=== PATIENT | male | born 1935 | race Caucasian/White ===

== ENCOUNTER 2017-08-04 21:15 | Emergency (ER) | payer MEDICARE ==
[2017-08-04 22:01] VITALS: BP 130/60; PULSE 74; RESP 18; TEMP 101.6; O2SAT 99
[2017-08-04] MEDS ORDERED: SODIUM CHLOR 0.9% 1000 ML INJ 1,000 ML IV SCH (22:48)
[2017-08-04] MEDS ORDERED: ONDANSETRON HCL 4 MG/2 ML VIAL IVP ONE (23:00)
[2017-08-04] MEDS ORDERED: RESP: ALBUTEROL 2.5 MG/IPRATROPIUM 0.5 MG NEB (SCH) NEB ONE (23:00)
[2017-08-04] MEDS ORDERED: SODIUM CHLORIDE 0.9% FLUSH 10 ML FLUSH IVF PRN (23:00)
[2017-08-04] MEDS ORDERED: SODIUM CHLORIDE 0.9% FLUSH 10 ML FLUSH IV FLUSH PRN (23:00)
[2017-08-04 23:19] LABS: AUTOMATED NEUTROPHIL # 3.6 TH/MM3 (1.8-7.7); BASOPHIL % 0.4 % (0.0-2.0); EOSINOPHIL % 0.6 % (0.0-4.0); HEMATOCRIT 32.7 % (39.0-51.0); HEMOGLOBIN 11.3 GM/DL (13.0-17.0); LYMPH % 19.5 % (9.0-44.0); MEAN CORPUSCULAR HEMOGLOBIN 31.7 PG (27.0-34.0); MEAN CORPUSCULAR HGB CONC 34.5 % (32.0-36.0); MEAN PLATELET VOLUME 7.1 FL (7.0-11.0); MONOCYTE # 0.5 TH/MM3 (0-0.9); NEUT % 70.5 % (16.0-70.0); PLATELET COUNT 134 TH/MM3 (150-450); RED BLOOD COUNT 3.55 MIL/MM3 (4.50-5.90); RED CELL DISTRIBUTION WIDTH 13.2 % (11.6-17.2); WHITE BLOOD COUNT 5.1 TH/MM3 (4.0-11.0)
--- NOTE | 2017-08-04 23:26 | RADRPT ---
EXAM DATE/TIME: 08/04/2017 23:10 [facility] COMPARISON: No previous studies available for comparison. INDICATIONS : Shortness of breath. MEDICAL HISTORY : None. SURGICAL HISTORY : None. ENCOUNTER: Initial ACUITY: 1 day PAIN SCORE: 3/10 LOCATION: Bilateral chest FINDINGS: There is a oval opacity in the right cardiophrenic angle measuring 4 cm. Cannot exclude mass stop th e left lung is clear. Both hemidiaphragms are well delineated. The heart is normal size. Asymmetri c appearance to the clavicles with a low position to the right a.c. joint. CONCLUSION: Focal opacity in the right cardiophrenic angle measures [address] thorax for further charac terization and to exclude a mass. . Gerald Lin MD on August 04, 2017 at 23:23 Board Certified Radiologist. This report was verified electronically.
[2017-08-04 23:31] LABS: BILIRUBIN, URINE NEG (NEG); BLOOD, URINE TRACE (NEG); GLUCOSE,URINE NEG (NEG); KETONE, URINE NEG (NEG); MUCUS URINE FEW /lpf (OCC); NITRITE,URINE NEG (NEG); URINE COLOR YELLOW (YELLW/STRAW); URINE LEUKOCYTE ESTERASE NEG (NEG)
[2017-08-04 23:36] LABS: ALBUMIN 3.8 GM/DL (3.4-5.0); AST (GOT) 42 U/L (15-37); BICARBONATE 22.5 MEQ/L (21.0-32.0); BLOOD UREA NITROGEN 22 MG/DL (7-18); CALCIUM 7.9 MG/DL (8.5-10.1); CHLORIDE 98 MEQ/L (98-107); CREATININE 1.42 MG/DL (0.60-1.30); GLOMERULAR FILTRATION RATE 47 ML/MIN (>89); GLUCOSE,RANDOM 130 MG/DL (74-106); INTERNATIONAL NORMALIZED RATIO 1.1 RATIO; PROTHROMBIN TIME - PATIENT 10.7 SEC (9.8-11.6); SODIUM (NA) 132 MEQ/L (136-145)
[2017-08-04 23:37] LABS: ALT (GPT) 35 U/L (12-78)
[2017-08-04 23:41] LABS: ALKALINE PHOSPHATASE 56 U/L (45-117); TOTAL BILIRUBIN ADULT 0.6 MG/DL (0.2-1.0); TROPONIN I 0.06 NG/ML (0.02-0.05)
[2017-08-05] VITALS: BP 126/60; PULSE 68; RESP 18; TEMP 100.3; O2SAT 95
[2017-08-05] MEDS ORDERED: IOHEXOL 350 MG/ML 10 ML VIAL (for RAD DIAG) IVCONTRAST ONE (00:39)
--- NOTE | 2017-08-05 00:45 | RADRPT ---
EXAM DATE/TIME: 08/05/2017 00:23 [facility] COMPARISON: No previous studies available for comparison. INDICATIONS : Abdomen pain. IV CONTRAST: 100 cc Omnipaque 350 (iohexol) IV ORAL CONTRAST: No oral contrast ingested. RADIATION DOSE: 8.04 CTDIvol (mGy) MEDICAL HISTORY : Cardiovascular disease. SURGICAL HISTORY : None. ENCOUNTER: Initial ACUITY: 1 day PAIN SCALE: 5/10 LOCATION: Bilateral abdomen TECHNIQUE: Volumetric scanning of the abdomen and pelvis was performed. Using automated exposure control and ad justment of the mA and/or kV according to patient size, radiation dose was kept as low as reasonably achievable to obtain optimal diagnostic quality images. DICOM format image data is available electro nically for review and comparison. FINDINGS: LOWER LUNGS: The visualized lower lungs are clear. There is coronary artery calcification. LIVER: Homogeneous density without lesion. There is no dilation of the biliary tree. No calcified gallston es. SPLEEN: Normal size without lesion. PANCREAS: Within normal limits. KIDNEYS: Normal in size and shape. There is no mass, stone or hydronephrosis. There is a simple cyst at the l eft upper pole kidney measuring 6.8 cm and at the left lower pole kidney measuring 1.3 cm. ADRENAL GLANDS: Within normal limits. VASCULAR: There is severe atherosclerotic disease with ectatic infrarenal aorta measuring up to 2.9 cm. BOWEL/MESENTERY: There is a moderate size hiatal hernia. Small bowel demonstrates no abnormality. There has been prior right hemicolectomy. Anastomoses demonstrates no abnormality. Mild sigmoid diverticulosis is present . There is no free air or free fluid. ABDOMINAL WALL: Within normal limits. RETROPERITONEUM: There is no lymphadenopathy. BLADDER: No wall thickening or mass. REPRODUCTIVE: Within normal limits. INGUINAL: There is no lymphadenopathy or hernia. MUSCULOSKELETAL: There are degenerative changes of the lumbar spine. 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 CONCLUSION: 1. No acute finding is identified to explain the abdominal pain. 2. Nonacute findings include moderate size hiatal hernia, coronary artery calcification with severe a therosclerotic disease of the aorta, bilateral pars defects of L5, and sigmoid diverticulosis. Deshawn Mahoney MD on August 05, 2017 at 0:38 Board Certified Radiologist. This report was verified electronically.
[2017-08-05] MEDS ORDERED: PIPERACIL-TAZO 2.25 GM PREMIX 50 ML IV ONE (01:00)
[2017-08-05] MEDS ORDERED: ZOFR4TAB3 SL (02:04)
--- NOTE | 2017-08-05 02:05 | PD ---
HPI . Cold/flu symptoms Chief Complaint: Cold / Flu Symptoms Time Seen by Provider: 22:44 Travel History International Travel<30 days: Yes Contact w/Intl Traveler<30days: Yes Name of Country Traveled to: [place] Traveled to known affect area: No History of Present Illness HPI 82-year-old male presents with having fever at 103, cough, no shortness of breath no nonproductive, abdominal pain, nausea diarrhea today. Patient notes left lower quadrant abdominal pain with palpation. 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 Patient's symptoms above predated the administration of antibiotics. PFSH Past Medical History Narrative Medical Past medical history reviewed Cardiac Catheterization: Yes (HEART ATTACK X 3 ) ?: Not Social History Alcohol Use: No Tobacco Use: No Substance Use: No Allergies-Medications (Allergen,Severity, Reaction): Coded Allergies: No Known Allergies (Verified Allergy, Unknown, 08/04/17) Reported Meds & Prescriptions Reported Meds & Active Scripts Active Active Prescriptions or Reported Medications Unobtainable Narrative Medication Allergies and medications reviewed Review of Systems Except as stated in HPI: all other systems reviewed are Neg General / Constitutional: No: Fever Eyes: No: Visual changes HENT: No: Headaches, Vertigo, Lightheadedness Cardiovascular: No: Chest Pain or Discomfort, Palpitations Respiratory: Positive: Cough, No: Shortness of Breath, Wheezing, Orthopnea, Hemoptysis, Stridor, Night Sweats, Pleuritic Pain Gastrointestinal: Positive: Nausea, Diarrhea, Abdominal Pain, Indigestion, No: Vomiting, Hematemesis, Hematochezia, Constipation, Dysphagia, Loss of Appetite Genitourinary: No: Dysuria Musculoskeletal: No: Pain Skin: No Rash Neurologic: No: Weakness Psychiatric: No: Depression Endocrine: No: Polydipsia Hematologic/Lymphatic: No: Easy Bruising Physical Exam Narrative GENERAL: Awake alert oriented 3 no acute distress. Vital signs patient is febrile otherwise stable and normal SKIN: Warm and dry. Color is normal no diaphoresis sinus pallor HEAD: Atraumatic. Normocephalic. EYES: Pupils equal and round. No scleral icterus. No injection or drainage. ENT: No nasal bleeding or discharge. Mucous membranes pink and moist. NECK: Trachea midline. No JVD. Supple full range of motion nontender CARDIOVASCULAR: Regular rate and rhythm. S1-S2 no murmurs rubs gallops RESPIRATORY: No accessory muscle use. Clear to auscultation. Breath sounds equal bilaterally. No significant prolonged expiratory phase GASTROINTESTINAL: Abdomen soft, mildly-tender left lower quadrant equivocal rebound and guarding, nondistended. Hepatic and splenic margins not palpable. MUSCULOSKELETAL: Extremities without clubbing, cyanosis, or edema. No obvious deformities. NEUROLOGICAL: Awake and alert. No obvious focal deficits PSYCHIATRIC: Appropriate mood and affect; insight and judgment normal. Data Data Last Documented VS Vital Signs Date Time Temp Pulse Resp B/P (MAP) Pulse Ox O2 Delivery O2 Flow Rate FiO2 08/05/17 00:00 100.3 68 18 126/60 (82) 95 Room Air Orders Orders Complete Blood Count With Diff (08/04/17 22:48) Comprehensive Metabolic Panel (08/04/17 22:48) Lipase (08/04/17 22:48) Lactic Acid (08/04/17 22:48) Prothrombin Time / Inr (Pt) (08/04/17 22:48) Act Partial Throm Time (Ptt) (08/04/17 22:48) Urinalysis - C+S If Indicated (08/04/17 22:48) Ct Abd/Pel W Iv Contrast(Rout) (08/04/17 22:48) Iv Access Insert/Monitor (08/04/17 22:48) Ecg Monitoring (08/04/17 22:48) Oximetry (08/04/17 22:48) Ondansetron Inj (Zofran Inj) (08/04/17 23:00) Sodium Chlor 0.9% 1000 Ml Inj (Ns 1000 M (08/04/17 22:48) Sodium Chloride 0.9% Flush (Ns Flush) (08/04/17 23:00) Electrocardiogram (08/04/17 22:48) Chest, Single Ap (08/04/17 22:48) Oxygen Administration (08/04/17 22:48) Sodium Chloride 0.9% Flush (Ns Flush) (08/04/17 23:00) Troponin I (08/04/17 22:48) B-Type Natriuretic Peptide (08/04/17 22:48) Blood Culture (08/04/17 22:48) Albuterol-Ipratropium Neb (Duoneb Neb) (08/04/17 23:00) Iohexol 350 Inj (Omnipaque 350 Inj) (08/05/17 00:39) Piperacil-Tazo 2.25 Gm Premix (Zosyn 2.2 (08/05/17 01:00) Labs Laboratory Tests Test 08/04/17 22:55 08/04/17 23:02 08/04/17 23:19 White Blood Count 5.1 TH/MM3 Red Blood Count 3.55 MIL/MM3 Hemoglobin 11.3 GM/DL Hematocrit 32.7 % Mean Corpuscular Volume 92.0 FL Mean Corpuscular Hemoglobin 31.7 PG Mean Corpuscular Hemoglobin Concent 34.5 % Red Cell Distribution Width 13.2 % Platelet Count 134 TH/MM3 Mean Platelet Volume 7.1 FL Neutrophils (%) (Auto) 70.5 % Lymphocytes (%) (Auto) 19.5 % Monocytes (%) (Auto) 9.0 % Eosinophils (%) (Auto) 0.6 % Basophils (%) (Auto) 0.4 % Neutrophils # (Auto) 3.6 TH/MM3 Lymphocytes # (Auto) 1.0 TH/MM3 Monocytes # (Auto) 0.5 TH/MM3 Eosinophils # (Auto) 0.0 TH/MM3 Basophils # (Auto) 0.0 TH/MM3 CBC Comment DIFF FINAL Differential Comment Prothrombin Time 10.7 SEC Prothromb Time International Ratio 1.1 RATIO Activated Partial Thromboplast Time 28.7 SEC Blood Urea Nitrogen 22 MG/DL Creatinine 1.42 MG/DL Random Glucose 130 MG/DL Total Protein 7.0 GM/DL Albumin 3.8 GM/DL Calcium Level 7.9 MG/DL Alkaline Phosphatase 56 U/L Aspartate Amino Transf (AST/SGOT) 42 U/L Alanine Aminotransferase (ALT/SGPT) 35 U/L Total Bilirubin 0.6 MG/DL Sodium Level 132 MEQ/L Potassium Level 3.9 MEQ/L Chloride Level 98 MEQ/L Carbon Dioxide Level 22.5 MEQ/L Anion Gap 12 MEQ/L Estimat Glomerular Filtration Rate 47 ML/MIN Troponin I 0.06 NG/ML B-Type Natriuretic Peptide 66 PG/ML Lipase 205 U/L Lactic Acid Level 1.2 mmol/L Urine Color YELLOW Urine Turbidity CLEAR Urine pH 5.0 Urine Specific [place] 1.016 Urine Protein NEG mg/dL Urine Glucose (UA) NEG mg/dL Urine Ketones NEG mg/dL Urine Occult Blood TRACE Urine Nitrite NEG Urine Bilirubin NEG Urine Urobilinogen LESS THAN 2.0 MG/DL Urine Leukocyte Esterase NEG Urine RBC 1 /hpf Urine Mucus FEW /lpf Microscopic Urinalysis Comment CULT NOT INDICATED MDM Medical Decision Making Medical Screen Exam Complete: Yes Emergency Medical Condition: Yes Medical Record Reviewed: Yes Differential Diagnosis Influenza, pneumonia, gastroenteritis, diverticulitis, colitis, duodenitis, Narrative Course Patient greatly and improved with medications and IV fluids. Zofran prescribed for home. Patient tolerating p.o. well. Patient is requesting discharge Diagnosis Primary Impression: Bronchitis Additional Impression: Gastroenteritis Patient Instructions: Acute Bronchitis (ED), Gastroenteritis (ED), General Instructions Additional Instructions: Tylenol/Motrin as directed as needed for fever. Zofran 4 mg dissolvable underneath the tongue every 8 hours as needed for nausea/vomiting. Drink plenty of fluids. Follow-up with [facility] or your private medical doctor. Return for worsening Scripts Ondansetron Odt (Zofran Odt) 4 Mg Tab 4 MG SL Q8HR Y for Nausea/Vomiting, #15 TAB 0 Refills Prov: Dany Fischer MD 08/05/17 Disposition: 01 DISCHARGE HOME Condition: Stable Dany Fischer MD Aug 05, 2017 02:05
[2017-08-05 02:10] VITALS: O2SAT 99
[2017-08-05 02:11] VITALS: TEMP 98.3
--- NOTE | 2017-08-05 10:55 | EKG ---
Date Performed: 08/04/2017 Time Performed: 23:12:49 PTAGE: 82 years EKG: Sinus rhythm ABNORMAL ECG NO PREVIOUS TRACING DOCTOR: Geovanni Dawson Interpretating Date/Time 08/05/2017 10:54:12
== END 2017-08-05 02:14 | disposition home or self-care (01) ==
LOC: NEPE 21:15
DX: J40 Bronchitis, not specified as acute or chronic (principal); K52.9 Noninfective gastroenteritis and colitis, unspecified; R94.31 Abnormal electrocardiogram [ECG] [EKG]
CPT/HCPCS: 71045; 74177; 80053; 81001; 83605; 83690; 83880; 84484; 85025; 85610; 85730; 87040; 93005; 94664; 96361; 96365; 99285; J2543; J7030; Q9967

== ENCOUNTER 2017-08-08 08:25 | Inpatient (IN) | payer MEDICARE ==
[~2017-08-08] VITALS: Ht 185.4 cm; Wt 96.6 kg
[2017-08-08] VITALS (11 sets, daily range): BP systolic 122–151; BP diastolic 60–78; PULSE 52–63; RESP 15–22; TEMP 97.8–98.4; O2SAT 95–98
[~2017-08-08 08:25] MED LIST: ZOFR4TAB3 SL
[2017-08-08] MEDS ORDERED: AUGM875T3 PO (09:15)
--- NOTE | 2017-08-08 09:15 | PD ---
HPI Chief Complaint: Chest Pain Time Seen by Provider: 09:08 Travel History International Travel<30 days: No Contact w/Intl Traveler<30days: No Traveled to known affect area: No History of Present Illness HPI Patient was previously seen in the ER diagnosed with gastroenteritis. 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 Patient complained this morning of substernal chest pressure, 8 out of 10, associated with diaphoresis, dizziness, nonradiating. No alleviating or aggravating factors. 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 PFSH Past Medical History Hx Anticoagulant Therapy: Yes Cardiac Catheterization: Yes (HEART ATTACK X 3 ) Cardiovascular Problems: Yes Chemotherapy: No Cerebrovascular Accident: No Diabetes: No Respiratory: No Social History Alcohol Use: No Tobacco Use: No Substance Use: No Allergies-Medications (Allergen,Severity, Reaction): Coded Allergies: No Known Allergies (Verified Allergy, Unknown, 08/08/17) Reported Meds & Prescriptions Reported Meds & Active Scripts Active Zofran Odt (Ondansetron Odt) 4 Mg Tab 4 Mg SL Q8HR PRN Reported Flomax (Tamsulosin HCl) 0.4 Mg Cap 0.4 Mg PO HS Norvasc (Amlodipine Besylate) 5 Mg Tab 5 Mg PO DAILY Augmentin (Amoxicillin-Clavulanate) 875-125 Mg Tab 1 Tab PO BID Review of Systems General / Constitutional: No: Fever Eyes: No: Visual changes HENT: No: Headaches Cardiovascular: Positive: Chest Pain or Discomfort, Diaphoresis Respiratory: No: Shortness of Breath Gastrointestinal: Positive: Nausea Genitourinary: No: Dysuria Musculoskeletal: No: Pain Skin: No Rash Neurologic: No: Weakness Psychiatric: No: Depression Endocrine: No: Polydipsia Hematologic/Lymphatic: No: Easy Bruising Physical Exam Narrative GENERAL: SKIN: Warm and dry. HEAD: Atraumatic. Normocephalic. EYES: Pupils equal and round. No scleral icterus. No injection or drainage. ENT: No nasal bleeding or discharge. Mucous membranes pink and moist. NECK: Trachea midline. No JVD. CARDIOVASCULAR: Regular rate and rhythm. RESPIRATORY: No accessory muscle use. Clear to auscultation. Breath sounds equal bilaterally. GASTROINTESTINAL: Abdomen soft, non-tender, nondistended. MUSCULOSKELETAL: Extremities without clubbing, cyanosis, or edema. No obvious deformities. NEUROLOGICAL: Awake and alert. No obvious cranial nerve deficits. Motor grossly within normal limits. Five out of 5 muscle strength in the arms and legs. Normal speech. PSYCHIATRIC: Appropriate mood and affect; insight and judgment normal. Data Data Last Documented VS Vital Signs Date Time Temp Pulse Resp B/P (MAP) Pulse Ox O2 Delivery O2 Flow Rate FiO2 08/08/17 10:34 97.8 52 16 143/78 (99) 98 Room Air Orders Orders Electrocardiogram (08/08/17 09:08) B-Type Natriuretic Peptide (08/08/17 09:08) Ckmb (Isoenzyme) Profile (08/08/17 09:08) Complete Blood Count With Diff (08/08/17:08) Comprehensive Metabolic Panel (08/08/17:08) Magnesium (Mg) (08/08/17 09:08) Prothrombin Time / Inr (Pt) (08/08/17 09:08) Act Partial Throm Time (Ptt) (08/08/17 09:08) Troponin I (08/08/17 09:08) Lipase (08/08/17 09:08) Chest, Single Ap (08/08/17 09:08) Ecg Monitoring (08/08/17 09:08) Bilateral Bp Monitoring (08/08/17 09:08) Iv Access Insert/Monitor (08/08/17:08) Oximetry (08/08/17 09:08) Oxygen Administration (08/08/17 09:08) Sodium Chloride 0.9% Flush (Ns Flush) (08/08/17 09:15) Aspirin Chew (Aspirin Chew) (08/08/17 10:30) Nitroglycerin 2% Oint (Nitroglycerin 2% (08/08/17 10:30) CKMB (08/08/17 09:20) CKMB% (08/08/17 09:20) Admit Order (Ed Use Only) (08/08/17 11:26) Labs Laboratory Tests Test 08/08/17 09:20 White Blood Count 2.1 TH/MM3 Red Blood Count 3.72 MIL/MM3 Hemoglobin 11.9 GM/DL Hematocrit 33.0 % Mean Corpuscular Volume 88.6 FL Mean Corpuscular Hemoglobin 31.8 PG Mean Corpuscular Hemoglobin Concent 35.9 % Red Cell Distribution Width 13.0 % Platelet Count 138 TH/MM3 Mean Platelet Volume 7.7 FL Neutrophils (%) (Auto) 42.5 % Lymphocytes (%) (Auto) 36.5 % Monocytes (%) (Auto) 18.3 % Eosinophils (%) (Auto) 2.3 % Basophils (%) (Auto) 0.4 % Neutrophils # (Auto) 0.9 TH/MM3 Lymphocytes # (Auto) 0.8 TH/MM3 Monocytes # (Auto) 0.4 TH/MM3 Eosinophils # (Auto) 0.0 TH/MM3 Basophils # (Auto) 0.0 TH/MM3 CBC Comment AUTO DIFF Differential Total Cells Counted 100 Neutrophils % (Manual) 49 % Lymphocytes % 34 % Monocytes % 17 % Neutrophils # (Manual) 1.0 TH/MM3 Differential Comment FINAL DIFF MANUAL Platelet Estimate LOW Platelet Morphology Comment NORMAL Acanthocytes 1+ Prothrombin Time 10.3 SEC Prothromb Time International Ratio 1.0 RATIO Activated Partial Thromboplast Time 28.7 SEC Blood Urea Nitrogen 15 MG/DL Creatinine 1.25 MG/DL Random Glucose 119 MG/DL Total Protein 7.0 GM/DL Albumin 3.5 GM/DL Calcium Level 8.1 MG/DL Magnesium Level 1.7 MG/DL Alkaline Phosphatase 53 U/L Aspartate Amino Transf (AST/SGOT) 96 U/L Alanine Aminotransferase (ALT/SGPT) 43 U/L Total Bilirubin 0.7 MG/DL Sodium Level 122 MEQ/L Potassium Level 4.6 MEQ/L Chloride Level 88 MEQ/L Carbon Dioxide Level 23.9 MEQ/L Anion Gap 10 MEQ/L Estimat Glomerular Filtration Rate 55 ML/MIN Total Creatine Kinase 1884 U/L Creatine Kinase MB 10.8 NG/ML Creatine Kinase MB % 0.6 % Troponin I 0.08 NG/ML B-Type Natriuretic Peptide 48 PG/ML Lipase 211 U/L [facility] Medical Decision Making Medical Screen Exam Complete: Yes Emergency Medical Condition: Yes Medical Record Reviewed: Yes Differential Diagnosis SC versus non-STEMI versus pneumonia versus pleural effusion Narrative Course On today's visit the patient's CBC shows a WBC of 2.1, platelet count 138, hemoglobin and hematocrit 11.9/33. There is been decrease in the patient's leukocyte count that was a lot more significant than the platelet count. There still is no left shift to suggest infection. Coagulation profile is normal. Currently at 1022 is pending chemistry profile. Today's chest x-ray was read by radiologist as improved lung aeration, previous opacity and questionable mass is now appears normal in appearance. No evidence of any acute airspace disease or congestion. Right hemidiaphragm is elevated but this is consistent with the previous chest x-ray as read by the radiologist. CMP 122, CHLORIDE 88, GFR 55, TOTAL CPK 1884, CKMB 10.8, TROPONIN .08, NORMAL BNP AND LIPASE CT abdomen pelvis done on August 05, 2017 shows no acute finding, finding of a moderate size hiatal hernia, coronary artery calcification was severe atherosclerotic disease of the aorta, and sigmoid diverticulosis by radiologist. August 04 shows a CBC which has no leukocytosis, no major anemia, low platelet count of 134,000, no left shift. Coagulation profile has an INR 1.1 and is otherwise within normal limits CMP sodium is 132 BUN is 22 creatinine 1.42 GFR of 47 Electrolytes were within normal limits LFTs were within normal limits as well, lipase within normal limits, however troponin was slightly elevated at 0.06 Negative blood culture growth. Chest x-ray on August 04 had a questionable focal opacity in the right cardiophrenic angle measuring 4 cm. Critical Care Narrative CRITICAL CARE NOTE: With evaluation of the patient, labs, EKG, receipt of radiologic studies, administration of medications, reevaluation the patient and discussion of the patient with the admitting physicians, the total critical care time was [45] minutes. Time to perform other separately billable procedures was not included in the critical care time. Diagnosis Primary Impression: Non-STEMI Additional Impression: HYPONATREMIA WITH DEHYDRATION Admitting Information Admitting Physician Requests: Admit Arvin Prince MD Aug 08, 2017 09:15
[2017-08-08] MEDS ORDERED: AMLO5 PO (09:16)
[2017-08-08] MEDS ORDERED: TAMS5CAP PO (09:16)
[2017-08-08] MEDS: SODIUM CHLORIDE 0.9% FLUSH 10 ML FLUSH IVF PRN (09:21)
[2017-08-08 09:43] LABS: AUTOMATED NEUTROPHIL # 0.9 TH/MM3 (1.8-7.7); BASOPHIL % 0.4 % (0.0-2.0); EOSINOPHIL % 2.3 % (0.0-4.0); HEMOGLOBIN 11.9 GM/DL (13.0-17.0); LYMPH % 36.5 % (9.0-44.0); LYMPHOCYTE # 0.8 TH/MM3 (1.0-4.8); MEAN CELL VOLUME 88.6 FL (80.0-100.0); MEAN CORPUSCULAR HEMOGLOBIN 31.8 PG (27.0-34.0); MEAN CORPUSCULAR HGB CONC 35.9 % (32.0-36.0); MEAN PLATELET VOLUME 7.7 FL (7.0-11.0); MONO % 18.3 % (0.0-8.0); MONOCYTE # 0.4 TH/MM3 (0-0.9); NEUT % 42.5 % (16.0-70.0); PLATELET COUNT 138 TH/MM3 (150-450); RED BLOOD COUNT 3.72 MIL/MM3 (4.50-5.90); WHITE BLOOD COUNT 2.1 TH/MM3 (4.0-11.0)
--- NOTE | 2017-08-08 09:49 | RADRPT ---
EXAM DATE/TIME: 08/08/2017 09:21 [facility] COMPARISON: CT ABDOMEN & PELVIS W CONTRAST, August 05, 2017, 0:23. CHEST SINGLE AP, August 04, 2017, 23:10. INDICATIONS : Chest pain since last night and fall this morning due to loss of balance. MEDICAL HISTORY : Pneumonia. SURGICAL HISTORY : None. ENCOUNTER: Initial ACUITY: 1 day PAIN SCORE: 5/10 LOCATION: Bilateral chest FINDINGS: There is slight improvement in lung aeration. The previously identified opacity in the right cardioph renic angle as change in appearance. It now appears represent normal right hilar structures. There is no evidence of acute airspace disease or significant congestion. Right hemidiaphragm remains elevated. CONCLUSION: 1. Focal opacity in the right cardiophrenic angle now has the appearance of normal right hilar struct ures. Focal masses no longer suspected. 2. No acute cardiac pulmonary process. 3. Elevated right hemidiaphragm. Sincere Norton MD on August 08, 2017 at 9:44 Board Certified Radiologist. This report was verified electronically.
[2017-08-08 09:54] LABS: PROTHROMBIN TIME - PATIENT 10.3 SEC (9.8-11.6)
[2017-08-08 10:24] LABS: LYMPHOCYTES 34 % (9-44); MONOCYTES 17 % (0-8); POLYS (SEG NEUTROPHILS) 49 % (16-70)
[2017-08-08 10:25] LABS: ACANTHOCYTES 1+ (NORMAL)
[2017-08-08] MEDS ORDERED: ASPIRIN 81 MG CHEW TAB PO ONE (10:30)
[2017-08-08] MEDS ORDERED: NITROGLYCERIN 2% OINT 1 GM PACKET TOP ONE (10:30)
[2017-08-08 10:54] LABS: ALBUMIN 3.5 GM/DL (3.4-5.0); ALKALINE PHOSPHATASE 53 U/L (45-117); ALT (GPT) 43 U/L (12-78); AST (GOT) 96 U/L (15-37); BICARBONATE 23.9 MEQ/L (21.0-32.0); BLOOD UREA NITROGEN 15 MG/DL (7-18); CALCIUM 8.1 MG/DL (8.5-10.1); CHLORIDE 88 MEQ/L (98-107); CREATININE 1.25 MG/DL (0.60-1.30); GLOMERULAR FILTRATION RATE 55 ML/MIN (>89); GLUCOSE,RANDOM 119 MG/DL (74-106); MAGNESIUM 1.7 MG/DL (1.5-2.5); TOTAL BILIRUBIN ADULT 0.7 MG/DL (0.2-1.0); TROPONIN I 0.08 NG/ML (0.02-0.05)
[2017-08-08 11:24] LABS: SODIUM (NA) 122 MEQ/L (136-145)
[2017-08-08] MEDS ORDERED: ONDANSETRON HCL 4 MG/2 ML VIAL IV PUSH PRN (11:45)
[2017-08-08] MEDS ORDERED: ACETAMINOPHEN 325 MG TAB PO PRN (11:45)
--- NOTE | 2017-08-08 12:08 | HHI.HP ---
[facility] Service [facility] Primary Care Physician No Primary Care Physician Admission Diagnosis NONSTEMI,HYPONATREMIA Diagnoses: (1) Chest pain Diagnosis: Principal (2) Elevated troponin Diagnosis: Principal (3) Hyponatremia Diagnosis: Principal Chief Complaint: ' generalized weakness'. Travel History International Travel<30 Days: No Contact w/Intl Traveler <30 Da: No Traveled to Known Affected Are: No History of Present Illness patient is a 82 y/o male with history of CAD- s/p stent placement three years ago, hypertension and colon cancer- who presented to ER with generalized weakness and chest pain. the , at the bedside, helped with the translation. she said that he's been coughing for the past few days and had on and off fever. he was seen in ER few days ago and was discharged home with the diagnosis of bronchitis. she says that the had some Augmentin at home and he's been taking it for the past three days. he started to have some diarrhea two days ago. today he denies any abdominal pain, nausea or emesis. he says that this morning he had some chest pain. pain was described as mid-sternal pressure with no radiation and no association with nausea, emesis or diaphoresis- however the pain subsided after he was started on Nitro-patch; he was pain-free at the time of my evaluation.the says that he was so weak and dizzy this morning that he was about to fall which made her concerned and decided to bring him to the hospital. Review of Systems Constitutional: COMPLAINS OF: Fatigue, Fever, DENIES: Weight loss, Chills, Night Sweats Eyes: DENIES: Blurred vision, Diplopia, Vision loss, Double Vision Ears, nose, mouth, throat: DENIES: Tinnitus, Vertigo, Throat pain, Epistaxis Respiratory: COMPLAINS OF: Cough, Sputum production, DENIES: Apneas, Snoring, Wheezing, Hemoptysis, Shortness of breath Cardiovascular: COMPLAINS OF: Chest pain, DENIES: Palpitations, Syncope, Dyspnea on Exertion, PND, Lower Extremity Edema, Orthopnea, Claudication Gastrointestinal: DENIES: Abdominal pain, Black stools, Bloody stools, Constipation, Diarrhea, Nausea, Vomiting, Difficulty Swallowing, Anorexia Genitourinary: DENIES: Urinary frequency, Urgency, Hematuria, Dysuria Musculoskeletal: DENIES: Joint pain, Muscle aches, Stiffness, Joint Swelling Integumentary: DENIES: Rash Neurologic: DENIES: Abnormal gait, Headache, Localized weakness, Paresthesias, Seizures, Speech Problems, Tremor, Poor Balance Psychiatric: DENIES: Anxiety, Confusion, Mood changes, Depression, Hallucinations, Agitation, Suicidal Ideation, Homicidal Ideation, Delusions Past Family Social History Past Medical History CAD/ hypertension/colon cancer. Past Surgical History cardiac stent placement/ colon resection. Reported Medications Flomax (Tamsulosin HCl) 0.4 Mg Cap 0.4 Mg PO HS Norvasc (Amlodipine Besylate) 5 Mg Tab 5 Mg PO DAILY Augmentin (Amoxicillin-Clavulanate) 875-125 Mg Tab 1 Tab PO BID Allergies: Coded Allergies: No Known Allergies (Verified Allergy, Unknown, 08/08/17) Active Ordered Medications Inpatient Medications Aspirin (Aspirin Chew) 162 mg ONCE ONCE PO Last administered on 08/08/17at 10: 33; Start 08/08/17 at 10:30; Stop 08/08/17 at 10:31; Status DC Nitroglycerin (Nitroglycerin 2% Oint) 0.5 inch ONCE ONCE TOP Last administered on 08/08/17at 10:33; Start 08/08/17 at 10:30; Stop 08/08/17 at 10:31 ; Status DC Sodium Chloride (NS Flush) 2 ml UNSCH PRN IVF FLUSH AFTER USING IV ACCESS Last administered on 08/08/17at 09:21; Start 08/08/17 at 09:15 Social History no smoking or drinking. Physical Exam Vital Signs Vital Signs Date Time Temp Pulse Resp B/P (MAP) Pulse Ox O2 Delivery O2 Flow Rate FiO2 08/08/17 10:34 97.8 52 16 143/78 (99) 98 Room Air 08/08/17 09:18 15 97 Room Air 08/08/17 09:18 97 Room Air 08/08/17 09:17 57 16 149/71 (97) 98 Room Air 129/60 (83) 08/08/17 09:17 56 17 97 Room Air 08/08/17 08:55 98.1 60 22 132/60 (84) 97 Physical Exam GENERAL: This is a well-nourished, well-developed patient, in no apparent distress. SKIN: No rashes, ecchymoses or lesions. Cool and dry. HEAD: Atraumatic. Normocephalic. No temporal or scalp tenderness. EYES: Pupils equal round and reactive. Extraocular motions intact. No scleral icterus. No injection or drainage. ENT: Nose without bleeding, purulent drainage or septal hematoma. Throat without erythema, tonsillar hypertrophy or exudate. Uvula midline. Airway patent. NECK: Trachea midline. No JVD or lymphadenopathy. Supple, nontender, no meningeal signs. CARDIOVASCULAR: Regular rate and rhythm without murmurs, gallops, or rubs. RESPIRATORY: Clear to auscultation. Breath sounds equal bilaterally. No wheezes , rales, or rhonchi. GASTROINTESTINAL: Abdomen soft, non-tender, nondistended. No hepato-splenomegaly , or palpable masses. No guarding. MUSCULOSKELETAL: Extremities without clubbing, cyanosis, or edema. No joint tenderness, effusion, or edema noted. No calf tenderness. Negative Homans sign bilaterally. NEUROLOGICAL: Awake and alert. Cranial nerves II through XII intact. Motor and sensory grossly within normal limits. Five out of 5 muscle strength in all muscle groups. Normal speech. Laboratory Laboratory Tests Test 08/08/17 09:20 White Blood Count 2.1 Red Blood Count 3.72 Hemoglobin 11.9 Hematocrit 33.0 Mean Corpuscular Volume 88.6 Mean Corpuscular Hemoglobin 31.8 Mean Corpuscular Hemoglobin Concent 35.9 Red Cell Distribution Width 13.0 Platelet Count 138 Mean Platelet Volume 7.7 Neutrophils (%) (Auto) 42.5 Lymphocytes (%) (Auto) 36.5 Monocytes (%) (Auto) 18.3 Eosinophils (%) (Auto) 2.3 Basophils (%) (Auto) 0.4 Neutrophils # (Auto) 0.9 Lymphocytes # (Auto) 0.8 Monocytes # (Auto) 0.4 Eosinophils # (Auto) 0.0 Basophils # (Auto) 0.0 CBC Comment AUTO DIFF Differential Total Cells Counted 100 Neutrophils % (Manual) 49 Lymphocytes % 34 Monocytes % 17 Neutrophils # (Manual) 1.0 Differential Comment FINAL DIFF MANUAL Platelet Estimate LOW Platelet Morphology Comment NORMAL Acanthocytes 1+ Prothrombin Time 10.3 Prothromb Time International Ratio 1.0 Activated Partial Thromboplast Time 28.7 Blood Urea Nitrogen 15 Creatinine 1.25 Random Glucose 119 Total Protein 7.0 Albumin 3.5 Calcium Level 8.1 Magnesium Level 1.7 Alkaline Phosphatase 53 Aspartate Amino Transf (AST/SGOT) 96 Alanine Aminotransferase (ALT/SGPT) 43 Total Bilirubin 0.7 Sodium Level 122 Potassium Level 4.6 Chloride Level 88 Carbon Dioxide Level 23.9 Anion Gap 10 Estimat Glomerular Filtration Rate 55 Total Creatine Kinase 1884 Creatine Kinase MB 10.8 Creatine Kinase MB % 0.6 Troponin I 0.08 B-Type Natriuretic Peptide 48 Lipase 211 Result Diagram: 08/08/1791908/08/17919 Imaging Last Impressions Chest X-Ray 08/08/17907 Signed Impressions: Service Date/Time: Tuesday, August 08, 2017 09:21 - CONCLUSION: 1. Focal opacity in the right cardiophrenic angle now has the appearance of normal right hilar structures. Focal masses no longer suspected. 2. No acute cardiac pulmonary process. 3. Elevated right hemidiaphragm. Sincere Norton MD EKG; sinus rhythm with first-degree AV block. Caprini VTE Risk Assessment Caprini VTE Risk Assessment: Mod/High Risk (score >= 2) Caprini Risk Assessment Model Point Value = 1 Point Value = 2 Point Value = 3 Point Value = 5 Age 41-60 Minor surgery BMI > 25 kg/m2 Swollen legs Varicose veins or History of unexplained or recurrent spontaneous Oral contraceptives or hormone replacement Sepsis (< 1 month) Serious lung disease, including pneumonia (< 1 month) Abnormal pulmonary function Acute myocardial infarction Congestive heart failure (< 1 month) History of inflammatory bowel disease Medical patient at bed rest Age 61-74 Arthroscopic surgery Major open surgery (> 45 min) Laparoscopic surgery (> 45 min) Malignancy Confined to bed (> 72 hours) Immobilizing plaster cast Central venous access Age >= 75 History of VTE Family history of VTE Factor V Leiden Prothrombin [id number] Lupus anticoagulant Anticardiolipin antibodies Elevated serum homocysteine Heparin-induced thrombocytopenia Other congenital or acquired thrombophilia Stroke (< 1 month) Elective arthroplasty Hip, pelvis, or leg fracture Acute spinal cord injury (< 1 month) Prophylaxis Regimen Total Risk Factor Score Risk Level Prophylaxis Regimen 0-1 Low Early ambulation 2 Moderate Order ONE of the following: *Sequential Compression Device (SCD) *Heparin 5000 units SQ BID 3-4 Higher Order ONE of the following medications: *Heparin 5000 units SQ TID *Enoxaparin/Lovenox 40 mg SQ daily (WT < 150 kg, CrCl > 30 mL/min) *Enoxaparin/Lovenox 30 mg SQ daily (WT < 150 kg, CrCl > 10-29 mL/min) *Enoxaparin/Lovenox 30 mg SQ BID (WT < 150 kg, CrCl > 30 mL/min) AND/OR *Sequential Compression Device (SCD) 5 or more Highest Order ONE of the following medications: *Heparin 5000 units SQ TID (Preferred with Epidurals) *Enoxaparin/Lovenox 40 mg SQ daily (WT < 150 kg, CrCl > 30 mL/min) *Enoxaparin/Lovenox 30 mg SQ daily (WT < 150 kg, CrCl > 10-29 mL/min) *Enoxaparin/Lovenox 30 mg SQ BID (WT < 150 kg, CrCl > 30 mL/min) AND *Sequential Compression Device (SCD) Assessment and Plan Assessment and Plan A/P - Hyponatremia- likely due to dehydration start on IV fluid and monitor the sodium level closely- check urine/serum osmolality and TSH -chest pain with mildly elevated troponin with history of CAD- s/p stent placement- pain subsided after Nitro continue aspirin- trend the cardiac enzymes and consult cardiology. -rhabdomyolysis start on IV fluid and monitor the CPK level and renal function. -possible pneumonia ( CXR few days ago with RLL opacity which now has resolved; patient has been on Augmentin at home). continue with antibiotic- will monitor temps -leukopenia/ thrombocytopenia; will monitor -hypertension; resume home meds- will monitor and adjust the regimen as needed. -DVT prophylaxis with SCD's Discussed Condition With ER physician, the patient and his . Physician Certification 2 Midnight Certification Type: Admission for Inpatient Services Order for Inpatient Services The services are ordered in accordance with Medicare regulations or non- Medicare payer requirements, as applicable. In the case of services not specified as inpatient-only, they are appropriately provided as inpatient services in accordance with the 2-midnight benchmark. Estimated LOS (days): 2 days is the estimated time the patient will need to remain in the hospital, assuming treatment plan goals are met and no additional complications. Post-Hospital Plan: Not yet determined Problem Qualifiers (1) Chest pain: Qualified Codes: R07.9 - Chest pain, unspecified Too Tesfaye MD Aug 08, 2017 12:08
[2017-08-08] MEDS ORDERED: MORPHINE SULFATE 2 MG/ML INJ IV PUSH PRN (12:15)
[2017-08-08] MEDS: SODIUM CHLOR 0.9% 1000 ML INJ 1,000 ML IV SCH ×2 (13:40→20:00)
[2017-08-08] MEDS: AMOXICILLIN/CLAVULANATE K 875 MG TAB PO SCH ×2 (13:40→20:00)
--- NOTE | 2017-08-08 14:53 | EKG ---
Date Performed: 08/08/2017 Time Performed: 09:30:47 PTAGE: 82 years EKG: SINUS BRADYCARDIA WITH FIRST DEGREE AV BLOCK MARKED LEFT AXIS DEVIATION MODERATE INTRAVENTR ICULAR CONDUCTION DELAY ABNORMAL ECG Compared to prior electrocardiogram, rate has decreased PREVIOUS TRACING : 08/04/2017 23.12 DOCTOR: Selwyn Joel Interpretating Date/Time 08/08/2017 14:53:23
[2017-08-08 19:10] LABS: TROPONIN I 0.08 NG/ML (0.02-0.05)
--- NOTE | 2017-08-08 19:47 | MB ---
cc: Van Yusuf MD, Joshua A MD DATE OF CONSULT: 08/08/2017 REASON FOR CONSULTATION: Chest pain with elevated troponin. HISTORY OF PRESENT ILLNESS: The patient is a very pleasant 82-year-old gentleman with a history of coronary artery disease status post 3 stents placed in [place]. The patient was just in the hospital for pneumonia and was at home where he became weak, dizzy and had a fairly vague central chest discomfort. He also seemed to have a near syncopal episode, but did not actually fall down and was able to be led back to the bed. He was brought back to the emergency department where he was found to be quite hyponatremic and his CK MB was elevated and he had a slight troponin elevation. Currently, he is feeling better without any residual symptoms. PAST MEDICAL HISTORY: 1. Coronary artery disease status post 3 stents in [place]. 2. Hypertension. 3. Colon cancer. CURRENT MEDICATIONS: Aspirin 81 mg daily, Norvasc 5 mg daily, Flomax 0.4 mg daily, Augmentin. ALLERGIES: NO KNOWN DRUG ALLERGIES. PHYSICAL EXAMINATION: VITAL SIGNS: Afebrile. Pulse 62, respiratory rate 16, BP 143/78, satting 98 on room air. GENERAL: A pleasant elderly gentleman in no distress. NECK: No JVD. LUNGS: Clear to auscultation bilaterally.. CARDIOVASCULAR: Regular rate and rhythm. No murmurs appreciated. ABDOMEN: Benign. EXTREMITIES: No edema. LABORATORY DATA: Sodium 122, potassium 4.6, chloride 88, bicarb 23.9, BUN 15, creatinine 1.25, glucose 119. Total CK is 1884, CK MB is 10.8, CK MB% is 0.6. Troponin is 0.08. White count 2.1, hematocrit 33.0, platelets 138. CARDIOLOGY STUDIES: EKG shows sinus bradycardia with no ST or T-wave changes. IMAGING STUDIES: Chest x-ray shows no acute cardiopulmonary process. IMPRESSION: Elevated troponin: The patient has vague chest pain with a slightly elevated troponin in the setting of significant hyponatremia and other nonspecific laboratory findings. At this point, I am undecided as to how to best pursue an ischemic workup whether it be nuclear stress test or cardiac catheterization as this will depend partially on how quickly his electrolytes return to normal and whether he has any recurrent symptoms. I will discuss the matter also with my interventional colleague and we will decide tomorrow on a final game plan for his ischemic workup. Further recommendations based on the above and his clinical course. Thank you again for the opportunity to participate in this patient's care. MD ADY Fernandez//riya , 12:31 PM , 07:03 PM
[2017-08-08] MEDS: TAMSULOSIN HCL 0.4 MG CAP PO SCH (19:53)
[2017-08-09] VITALS (23 sets, daily range): BP systolic 148–155; BP diastolic 68–80; PULSE 54–70; RESP 16–20; TEMP 98–99; O2SAT 94–97
[2017-08-09 06:30] LABS: CALCIUM 8.1 MG/DL (8.5-10.1); CREATININE 1.08 MG/DL (0.60-1.30)
[2017-08-09 06:32] LABS: AUTOMATED NEUTROPHIL # 0.9 TH/MM3 (1.8-7.7); BASOPHIL % 0.2 % (0.0-2.0); EOSINOPHIL # 0.1 TH/MM3 (0-0.4); EOSINOPHIL % 2.2 % (0.0-4.0); HEMATOCRIT 30.8 % (39.0-51.0); HEMOGLOBIN 11.1 GM/DL (13.0-17.0); LYMPH % 48.3 % (9.0-44.0); LYMPHOCYTE # 1.2 TH/MM3 (1.0-4.8); MEAN CELL VOLUME 88.2 FL (80.0-100.0); MEAN CORPUSCULAR HEMOGLOBIN 31.7 PG (27.0-34.0); MEAN CORPUSCULAR HGB CONC 35.9 % (32.0-36.0); MEAN PLATELET VOLUME 7.7 FL (7.0-11.0); MONO % 14.5 % (0.0-8.0); MONOCYTE # 0.4 TH/MM3 (0-0.9); NEUT % 34.8 % (16.0-70.0); PLATELET COUNT 120 TH/MM3 (150-450); RED BLOOD COUNT 3.49 MIL/MM3 (4.50-5.90); RED CELL DISTRIBUTION WIDTH 13.1 % (11.6-17.2); WHITE BLOOD COUNT 2.6 TH/MM3 (4.0-11.0)
[2017-08-09 08:46] LABS: BANDS 3 % (0-6); BASOPHILS 1 % (0-2); LYMPHOCYTES 39 % (9-44); MONOCYTES 9 % (0-8); NEUTROPHIL # MANUAL DIFF 1.3 TH/MM3 (1.8-7.7); POLYS (SEG NEUTROPHILS) 48 % (16-70)
[2017-08-09] MEDS: ASPIRIN EC 81 MG TABEC PO SCH (09:00)
[2017-08-09] MEDS: amLODIPine BESYLATE 5 MG TAB PO SCH (09:00)
[2017-08-09] MEDS: AMOXICILLIN/CLAVULANATE K 875 MG TAB PO SCH ×2 (09:00→20:59)
--- NOTE | 2017-08-09 09:00 | HHI.PR ---
Subjective Remarks This is a pleasant 82 y/o male with CAD status post PCI and stent placement three years ago, has Hypertension, Colon Cancer by history, who came to ER with Chest pain, generalized weakness, recently seen in ER and was discharged home on Augmentin for Bronchitis, he developed diarrhea two days before coming to ER, awaiting for the second part of his Stress test for tomorrow as per Cardiology if negative will sign off, at this time patient with his who translate for him. no nausea, vomit or diarrhea, denies chest pain. Objective Vital Signs Date Time Temp Pulse Resp B/P (MAP) Pulse Ox O2 Delivery O2 Flow Rate FiO2 08/09/17 07:56 54 08/09/17 07:56 99.0 54 16 155/76 (102) 97 08/09/17 07:56 95 Room Air 08/09/17 06:00 56 08/09/17 05:00 57 08/09/17 04:00 Nasal Cannula 2.00 08/09/17 04:00 54 08/09/17 03:00 57 08/09/17 02:00 61 08/09/17 01:00 57 08/09/17 00:00 54 08/09/17 00:00 98.2 54 20 153/80 (104) 94 08/09/17 00:00 Nasal Cannula 2.00 08/08/17 23:00 53 08/08/17 22:00 61 08/08/17 21:00 55 08/08/17 20:00 61 08/08/17 20:00 98.4 61 18 138/74 (95) 96 08/08/17 18:00 98.2 56 18 151/76 (101) 95 08/08/17 18:00 56 08/08/17 16:02 97.8 60 16 122/69 (86) 99 08/08/17 13:40 97.8 63 16 139/68 (91) 98 Room Air 08/08/17 10:34 97.8 52 16 143/78 (99) 98 Room Air 08/08/17 09:18 15 97 Room Air 08/08/17 09:18 97 Room Air 08/08/17 09:17 57 16 149/71 (97) 98 Room Air 129/60 (83) 08/08/17 09:17 56 17 97 Room Air I/O 08/08/17 08/08/17 08/08/17 08/09/17 08/09/17 08/09/17 07:00 15:00 23:00 07:00 15:00 23:00 Intake Total 400 ml 1240 ml Output Total 500 ml 800 ml Balance -100 ml 440 ml Intake Oral 400 ml 240 ml IV Total 1000 ml Output Urine Total 500 ml 800 ml # Voids 1 # Bowel Movements 0 0 Result Diagram: 08/09/17 0505 08/09/17 0505 Imaging Last Impressions Chest X-Ray 08/08/17 0908 Signed Impressions: Service Date/Time: Tuesday, August 08, 2017 09:21 - CONCLUSION: 1. Focal opacity in the right cardiophrenic angle now has the appearance of normal right hilar structures. Focal masses no longer suspected. 2. No acute cardiac pulmonary process. 3. Elevated right hemidiaphragm. Sincere Norton MD Procedures Stress test. Other Results Laboratory Tests Test 08/08/17 09:20 08/08/17 12:10 08/08/17 18:35 08/09/17 05:05 Acanthocytes 1+ Prothrombin Time 10.3 SEC Prothromb Time International Ratio 1.0 RATIO Activated Partial Thromboplast Time 28.7 SEC Blood Urea Nitrogen 15 MG/DL 13 MG/DL Creatinine 1.25 MG/DL 1.08 MG/DL Random Glucose 119 MG/DL 99 MG/DL Total Protein 7.0 GM/DL Albumin 3.5 GM/DL Calcium Level 8.1 MG/DL 8.1 MG/DL Magnesium Level 1.7 MG/DL Alkaline Phosphatase 53 U/L Aspartate Amino Transf (AST/SGOT) 96 U/L Alanine Aminotransferase (ALT/SGPT) 43 U/L Total Bilirubin 0.7 MG/DL Sodium Level 122 MEQ/L 125 MEQ/L Potassium Level 4.6 MEQ/L 3.4 MEQ/L Chloride Level 88 MEQ/L 89 MEQ/L Carbon Dioxide Level 23.9 MEQ/L 26.0 MEQ/L B-Type Natriuretic Peptide 48 PG/ML Lipase 211 U/L Serum Osmolality 260 MOSM/KG Troponin I 0.08 NG/ML Thyroid Stimulating Hormone 3rd Gen 3.460 uIU/ML White Blood Count 2.6 TH/MM3 Red Blood Count 3.49 MIL/MM3 Hemoglobin 11.1 GM/DL Hematocrit 30.8 % Mean Corpuscular Volume 88.2 FL Mean Corpuscular Hemoglobin 31.7 PG Mean Corpuscular Hemoglobin Concent 35.9 % Red Cell Distribution Width 13.1 % Platelet Count 120 TH/MM3 Mean Platelet Volume 7.7 FL Neutrophils (%) (Auto) 34.8 % Lymphocytes (%) (Auto) 48.3 % Monocytes (%) (Auto) 14.5 % Eosinophils (%) (Auto) 2.2 % Basophils (%) (Auto) 0.2 % Neutrophils # (Auto) 0.9 TH/MM3 Lymphocytes # (Auto) 1.2 TH/MM3 Monocytes # (Auto) 0.4 TH/MM3 Eosinophils # (Auto) 0.1 TH/MM3 Basophils # (Auto) 0.0 TH/MM3 CBC Comment AUTO DIFF Differential Total Cells Counted 100 Neutrophils % (Manual) 48 % Band Neutrophils % 3 % Lymphocytes % 39 % Monocytes % 9 % Basophils % 1 % Neutrophils # (Manual) 1.3 TH/MM3 Differential Comment FINAL DIFF MANUAL Platelet Estimate LOW Platelet Morphology Comment ENLARGED Anion Gap 10 MEQ/L Estimat Glomerular Filtration Rate 65 ML/MIN Total Creatine Kinase 1678 U/L Creatine Kinase MB 12.7 NG/ML Creatine Kinase MB % 0.8 % Objective Remarks GENERAL: Obese patient in no acute distress. SKIN: No rashes, ecchymoses or lesions. Cool and dry. HEAD: Atraumatic. Normocephalic. No temporal or scalp tenderness. EYES: Pupils equal round and reactive. Extraocular motions intact. No scleral icterus. No injection or drainage. ENT: Nose without bleeding, purulent drainage or septal hematoma. Throat without erythema, tonsillar hypertrophy or exudate. Uvula midline. Airway patent. NECK: Trachea midline. No JVD or lymphadenopathy. Supple, nontender, no meningeal signs. CARDIOVASCULAR: Regular rate and rhythm without murmurs, gallops, or rubs. RESPIRATORY: Clear to auscultation. Breath sounds equal bilaterally. No wheezes , rales, or rhonchi. GASTROINTESTINAL: Abdomen soft, non-tender, nondistended. No hepato-splenomegaly , or palpable masses. No guarding. MUSCULOSKELETAL: Extremities without clubbing, cyanosis, or edema. No joint tenderness, effusion, or edema noted. No calf tenderness. Negative Homans sign bilaterally. NEUROLOGICAL: Awake and alert. Cranial nerves II through XII intact. Motor and sensory grossly within normal limits. Five out of 5 muscle strength in all muscle groups. Normal speech. Medications and IVs Current Medications Medications (Trade) Dose Ordered Sig/Marcelo Route Start Time Stop Time Status Last Admin (NS Flush) 2 ml UNSCH PRN IVF 08/08/17 09:15 08/08/17 09:21 Sodium Chloride 1,000 ml @ 100 mls/hr Q10H IV 08/08/17 11:45 08/08/17 13:40 (Tylenol) 650 mg Q4H PRN PO 08/08/17 11:45 (Zofran Inj) 4 mg Q8HR PRN IV PUSH 08/08/17 11:45 (Ecotrin Ec) 81 mg DAILY PO 08/09/17 09:00 (Norvasc) 5 mg DAILY PO 08/09/17 09:00 (Flomax) 0.4 mg HS PO 08/08/17 21:00 08/08/17 19:53 (Augmentin) 875 mg Q12HR PO 08/08/17 12:15 08/08/17 13:40 (Morphine Inj) 2 mg Q4H PRN IV PUSH 08/08/17 12:15 (Pneumovax-23 Inj) 25 mcg ONCE ONCE IM 08/09/17 10:00 08/09/17 10:01 A/P Assessment and Plan - Hyponatremia- likely due to dehydration continue IV fluids, follow laboratory. follow Urine electrolytes. - Atypical Chest pain, in a patient with CAD status post stent placement, pain improved after nitroglycerine. Cardiology following asked for Stress test second part for tomorrow. -Rhabdomyolysis, continue IV fluids and follow laboratory in a;m tomorrow. -possible pneumonia ( CXR few days ago with RLL opacity which now has resolved; patient has been on Augmentin at home). continue with antibiotic- will monitor temps, bronchodilator, Mucolytic and incentive spirometry. -leukopenia/ thrombocytopenia; will monitor -electrolyte derangement replaced Potassium and Magnesium and following -hypertension; resume home meds- will monitor and adjust the regimen as needed. -Obesity strongly recommended diet and exercise as outpatient DVT prophylaxis with SCD's Discussed Condition With Patient and his in the room, Mrs. Fisher also with nurse. Discharge Planning Once cleared by Cardiology Mariusz Daniels MD Aug 09, 2017 08:59
[2017-08-09] MEDS ORDERED: POTASSIUM CHLORIDE 20 MEQ CONTROLLED RELEASE TAB PO ONE ×2 (09:15→12:00)
[2017-08-09] MEDS ORDERED: PNEUMOCOCCAL POLYVALENT INJ 25 MCG/0.5 ML SYR IM ONE (10:00)
[2017-08-09] MEDS: MAGNESIUM SULFATE 1 GM PREMIX 100 ML IV SCH ×2 (10:15→18:11)
--- NOTE | 2017-08-09 11:16 | PD.CARD.PN ---
Subjective Subjective Remarks Feels much better, no further chest pain Objective Medications Current Medications Medications (Trade) Dose Ordered Sig/Marcelo Route Start Time Stop Time Status Last Admin (NS Flush) 2 ml UNSCH PRN IVF 08/08/17 09:15 08/08/17 09:21 Sodium Chloride 1,000 ml @ 100 mls/hr Q10H IV 08/08/17 11:45 08/08/17 13:40 (Tylenol) 650 mg Q4H PRN PO 08/08/17 11:45 (Zofran Inj) 4 mg Q8HR PRN IV PUSH 08/08/17 11:45 (Ecotrin Ec) 81 mg DAILY PO 08/09/17 09:00 (Norvasc) 5 mg DAILY PO 08/09/17 09:00 (Flomax) 0.4 mg HS PO 08/08/17 21:00 08/08/17 19:53 (Augmentin) 875 mg Q12HR PO 08/08/17 12:15 08/08/17 13:40 (Morphine Inj) 2 mg Q4H PRN IV PUSH 08/08/17 12:15 Magnesium Sulfate/ Dextrose 100 ml @ 100 mls/hr Q1H IV 08/09/17 09:15 08/09/17 11:14 (KCl) 20 meq ONCE ONCE PO 08/09/17 12:00 08/09/17 12:01 Vital Signs / I&O Vital Signs Date Time Temp Pulse Resp B/P (MAP) Pulse Ox O2 Delivery O2 Flow Rate FiO2 08/09/17 09:16 96 Nasal Cannula 2.00 08/09/17 07:56 54 08/09/17 07:56 99.0 54 16 155/76 (102) 97 08/09/17 07:56 95 Room Air 08/09/17 06:00 56 08/09/17 05:00 57 08/09/17 04:00 Nasal Cannula 2.00 08/09/17 04:00 54 08/09/17 03:00 57 08/09/17 02:00 61 08/09/17 01:00 57 08/09/17 00:00 54 08/09/17 00:00 98.2 54 20 153/80 (104) 94 08/09/17 00:00 Nasal Cannula 2.00 08/08/17 23:00 53 08/08/17 22:00 61 08/08/17 21:00 55 08/08/17 20:00 61 08/08/17 20:00 98.4 61 18 138/74 (95) 96 08/08/17 18:00 98.2 56 18 151/76 (101) 95 08/08/17 18:00 56 08/08/17 16:02 97.8 60 16 122/69 (86) 99 08/08/17 13:40 97.8 63 16 139/68 (91) 98 Room Air I/O 08/08/17 08/08/17 08/08/17 08/09/17 08/09/17 08/09/17 07:00 15:00 23:00 07:00 15:00 23:00 Intake Total 400 ml 1240 ml Output Total 500 ml 800 ml Balance -100 ml 440 ml Intake Oral 400 ml 240 ml IV Total 1000 ml Output Urine Total 500 ml 800 ml # Voids 1 # Bowel Movements 0 0 Physical Exam GENERAL: This is a well-nourished, well-developed patient, in no apparent distress. CARDIOVASCULAR: Regular rate and rhythm without murmurs, gallops, or rubs. RESPIRATORY: Clear to auscultation. Breath sounds equal bilaterally. No wheezes , rales, or rhonchi. GASTROINTESTINAL: Abdomen soft, non-tender, nondistended. Normal active bowel sounds MUSCULOSKELETAL: Extremities without clubbing, cyanosis, or edema. NEURO: Alert & Oriented x4 to person, place, time, situation. Moves all ext x4 Laboratory Laboratory Tests Test 08/08/17 12:10 08/08/17 13:05 08/08/17 18:35 08/09/17 05:05 Serum Osmolality 260 MOSM/KG Troponin I 0.08 NG/ML 0.08 NG/ML Sodium Level 125 MEQ/L 125 MEQ/L Thyroid Stimulating Hormone 3rd Gen 3.460 uIU/ML White Blood Count 2.6 TH/MM3 Red Blood Count 3.49 MIL/MM3 Hemoglobin 11.1 GM/DL Hematocrit 30.8 % Mean Corpuscular Volume 88.2 FL Mean Corpuscular Hemoglobin 31.7 PG Mean Corpuscular Hemoglobin Concent 35.9 % Red Cell Distribution Width 13.1 % Platelet Count 120 TH/MM3 Mean Platelet Volume 7.7 FL Neutrophils (%) (Auto) 34.8 % Lymphocytes (%) (Auto) 48.3 % Monocytes (%) (Auto) 14.5 % Eosinophils (%) (Auto) 2.2 % Basophils (%) (Auto) 0.2 % Neutrophils # (Auto) 0.9 TH/MM3 Lymphocytes # (Auto) 1.2 TH/MM3 Monocytes # (Auto) 0.4 TH/MM3 Eosinophils # (Auto) 0.1 TH/MM3 Basophils # (Auto) 0.0 TH/MM3 CBC Comment AUTO DIFF Differential Total Cells Counted 100 Neutrophils % (Manual) 48 % Band Neutrophils % 3 % Lymphocytes % 39 % Monocytes % 9 % Basophils % 1 % Neutrophils # (Manual) 1.3 TH/MM3 Differential Comment FINAL DIFF MANUAL Platelet Estimate LOW Platelet Morphology Comment ENLARGED Blood Urea Nitrogen 13 MG/DL Creatinine 1.08 MG/DL Random Glucose 99 MG/DL Calcium Level 8.1 MG/DL Potassium Level 3.4 MEQ/L Chloride Level 89 MEQ/L Carbon Dioxide Level 26.0 MEQ/L Anion Gap 10 MEQ/L Estimat Glomerular Filtration Rate 65 ML/MIN Total Creatine Kinase 1678 U/L Creatine Kinase MB 12.7 NG/ML Creatine Kinase MB % 0.8 % Imaging Last Impressions Chest X-Ray 08/08/17 0908 Signed Impressions: Service Date/Time: Tuesday, August 08, 2017 09:21 - CONCLUSION: 1. Focal opacity in the right cardiophrenic angle now has the appearance of normal right hilar structures. Focal masses no longer suspected. 2. No acute cardiac pulmonary process. 3. Elevated right hemidiaphragm. Sincere Norton MD Assessment and Plan Problem List: (1) Chest pain ICD Codes: R07.9 - Chest pain, unspecified Plan: vague and resolved; w/ hx of CAD will get nuc stress (2) Elevated troponin ICD Codes: R74.8 - Abnormal levels of other serum enzymes Plan: flat/ not consistent with ACS (3) Hyponatremia ICD Codes: E87.1 - Hypo-osmolality and hyponatremia Plan: Mgt per medical team Assessment and Plan If no ischemia on nuclear will sign off; it pt does require a cath will probably wait until later in the week when sodium improved Problem Qualifiers (1) Chest pain: Qualified Codes: R07.9 - Chest pain, unspecified Van Yusuf MD Aug 09, 2017 11:16
[2017-08-09] MEDS: SODIUM CHLOR 0.9% 1000 ML INJ 1,000 ML IV SCH (18:04)
[2017-08-09] MEDS: TAMSULOSIN HCL 0.4 MG CAP PO SCH (20:59)
[2017-08-09] MEDS: guaiFENesin E.R. 600 MG TAB PO SCH (20:59)
[2017-08-09] MEDS: RESP: ALBUTEROL 2.5 MG/IPRATROPIUM 0.5 MG NEB (SCH) NEB (21:45)
[2017-08-10] VITALS (21 sets, daily range): BP systolic 134–156; BP diastolic 70–78; PULSE 64–85; RESP 18; TEMP 98.2–98.7; O2SAT 96–98
[2017-08-10] MEDS: RESP: ALBUTEROL 2.5 MG/IPRATROPIUM 0.5 MG NEB (SCH) NEB ×7 (00:41→23:36)
[2017-08-10] MEDS: SODIUM CHLOR 0.9% 1000 ML INJ 1,000 ML IV SCH ×3 (06:07→23:58)
[2017-08-10 06:32] LABS: BICARBONATE 24.1 MEQ/L (21.0-32.0); CALCIUM 8.3 MG/DL (8.5-10.1); CREATININE 0.98 MG/DL (0.60-1.30); MAGNESIUM 2.2 MG/DL (1.5-2.5); PHOSPHORUS 2.6 MG/DL (2.5-4.9)
--- NOTE | 2017-08-10 08:15 | PD.CARD.PN ---
Subjective Subjective Remarks Feels much better, no further chest pain Objective Medications Current Medications Medications (Trade) Dose Ordered Sig/Marcelo Route Start Time Stop Time Status Last Admin (NS Flush) 2 ml UNSCH PRN IVF 08/08/17 09:15 08/08/17 09:21 Sodium Chloride 1,000 ml @ 83 mls/hr Q12H3M IV 08/08/17 11:45 08/09/17 18:04 (Tylenol) 650 mg Q4H PRN PO 08/08/17 11:45 (Zofran Inj) 4 mg Q8HR PRN IV PUSH 08/08/17 11:45 (Ecotrin Ec) 81 mg DAILY PO 08/09/17 09:00 08/09/17 09:00 (Norvasc) 5 mg DAILY PO 08/09/17 09:00 08/09/17 09:00 (Flomax) 0.4 mg HS PO 08/08/17 21:00 08/09/17 20:59 (Augmentin) 875 mg Q12HR PO 08/08/17 12:15 08/09/17 20:59 (Morphine Inj) 2 mg Q4H PRN IV PUSH 08/08/17 12:15 (Duoneb Neb) 1 ampule Q4HR NEB NEB 08/09/17 20:00 08/10/17 07:45 (Mucinex Er) 600 mg BID PO 08/09/17 21:00 08/09/17 20:59 Vital Signs / I&O Vital Signs Date Time Temp Pulse Resp B/P (MAP) Pulse Ox O2 Delivery O2 Flow Rate FiO2 08/10/17 07:48 97 Nasal Cannula 2.00 08/10/17 06:00 69 08/10/17 05:00 71 08/10/17 04:00 76 08/10/17 03:00 65 08/10/17 02:00 64 08/10/17 01:00 70 08/10/17 00:00 Room Air 08/10/17 00:00 98.4 73 18 134/70 (91) 96 08/10/17 00:00 73 08/09/17 23:00 62 08/09/17 22:00 64 08/09/17 21:47 95 08/09/17 21:00 56 08/09/17 20:00 55 08/09/17 20:00 98.2 55 20 150/68 (95) 97 08/09/17 20:00 Room Air 08/09/17 18:00 58 08/09/17 17:00 56 08/09/17 16:00 98.0 60 16 154/76 (102) 96 08/09/17 15:00 64 08/09/17 13:00 70 08/09/17 12:00 60 08/09/17 11:00 60 08/09/17 11:00 98.7 60 16 148/72 (97) 95 08/09/17 10:00 64 08/09/17 09:16 96 Nasal Cannula 2.00 08/09/17 09:00 60 I/O 08/09/17 08/09/17 08/09/17 08/10/17 08/10/17 08/10/17 07:00 15:00 23:00 07:00 15:00 23:00 Intake Total 1240 ml 1560 ml 1070 ml Output Total 800 ml 750 ml 800 ml Balance 440 ml 810 ml 270 ml Intake Oral 240 ml 600 ml 240 ml IV Total 1000 ml 960 ml 830 ml Output Urine Total 800 ml 750 ml 800 ml # Bowel Movements 0 0 0 Physical Exam GENERAL: This is a well-nourished, well-developed patient, in no apparent distress. CARDIOVASCULAR: Regular rate and rhythm without murmurs, gallops, or rubs. RESPIRATORY: Clear to auscultation. Breath sounds equal bilaterally. No wheezes , rales, or rhonchi. GASTROINTESTINAL: Abdomen soft, non-tender, nondistended. Normal active bowel sounds MUSCULOSKELETAL: Extremities without clubbing, cyanosis, or edema. NEURO: Alert & Oriented x4 to person, place, time, situation. Moves all ext x4 Laboratory Laboratory Tests Test 08/10/17 05:06 Blood Urea Nitrogen 12 MG/DL Creatinine 0.98 MG/DL Random Glucose 121 MG/DL Calcium Level 8.3 MG/DL Phosphorus Level 2.6 MG/DL Magnesium Level 2.2 MG/DL Sodium Level 125 MEQ/L Potassium Level 3.4 MEQ/L Chloride Level 90 MEQ/L Carbon Dioxide Level 24.1 MEQ/L Anion Gap 11 MEQ/L Estimat Glomerular Filtration Rate 73 ML/MIN Imaging Last Impressions Chest X-Ray 08/08/17 0908 Signed Impressions: Service Date/Time: Tuesday, August 08, 2017 09:21 - CONCLUSION: 1. Focal opacity in the right cardiophrenic angle now has the appearance of normal right hilar structures. Focal masses no longer suspected. 2. No acute cardiac pulmonary process. 3. Elevated right hemidiaphragm. Sincere Norton MD Assessment and Plan Problem List: (1) Chest pain ICD Codes: R07.9 - Chest pain, unspecified Plan: vague and resolved; w/ hx of CAD will get nuc stress (2) Elevated troponin ICD Codes: R74.8 - Abnormal levels of other serum enzymes Plan: flat/ not consistent with ACS (3) Hyponatremia ICD Codes: E87.1 - Hypo-osmolality and hyponatremia Plan: Mgt per medical team Assessment and Plan If no ischemia on nuclear will sign off; it pt does require a cath will probably wait until later in the week when sodium improved Problem Qualifiers (1) Chest pain: Qualified Codes: R07.9 - Chest pain, unspecified Van Yusuf MD Aug 10, 2017 08:15
--- NOTE | 2017-08-10 09:01 | HHI.PR ---
Subjective Remarks This is a pleasant 82 y/o male with CAD status post PCI and stent placement three years ago, has Hypertension, Colon Cancer by history, who came to ER with Chest pain, generalized weakness, recently seen in ER and was discharged home on Augmentin for Bronchitis, he developed diarrhea two days before coming to ER, awaiting for the second part of his Stress test for tomorrow as per Cardiology if negative will sign off, at this time patient with his who translate for him. no nausea, vomit or diarrhea, denies chest pain. 08/10: Seen by Cardiology today, Stress test no definite reversibility to suggest ischemia, fixed perfusion defect inferiorly may represent prior infarcts, Normal wall motion with ejection fraction 65%, No nausea, vomit or diarrhea, patient with his in the room, feeling weak may need rehab to continue his rehabilitation, asked for PT and continue replacing electrolytes. Objective Vital Signs Date Time Temp Pulse Resp B/P (MAP) Pulse Ox O2 Delivery O2 Flow Rate FiO2 08/10/17 07:48 97 Nasal Cannula 2.00 08/10/17 06:00 69 08/10/17 05:00 71 08/10/17 04:00 76 08/10/17 03:00 65 08/10/17 02:00 64 08/10/17 01:00 70 08/10/17 00:00 Room Air 08/10/17 00:00 98.4 73 18 134/70 (91) 96 08/10/17 00:00 73 08/09/17 23:00 62 08/09/17 22:00 64 08/09/17 21:47 95 08/09/17 21:00 56 08/09/17 20:00 55 08/09/17 20:00 98.2 55 20 150/68 (95) 97 08/09/17 20:00 Room Air 08/09/17 18:00 58 08/09/17 17:00 56 08/09/17 16:00 98.0 60 16 154/76 (102) 96 08/09/17 15:00 64 08/09/17 13:00 70 08/09/17 12:00 60 08/09/17 11:00 60 08/09/17 11:00 98.7 60 16 148/72 (97) 95 08/09/17 10:00 64 08/09/17 09:16 96 Nasal Cannula 2.00 3/11/18 09:00 60 I/O 08/09/17 08/09/17 08/09/17 08/10/17 08/10/17 08/10/17 06:59 14:59 22:59 06:59 14:59 22:59 Intake Total 1240 ml 1560 ml 1070 ml Output Total 800 ml 750 ml 800 ml Balance 440 ml 810 ml 270 ml Intake Oral 240 ml 600 ml 240 ml IV Total 1000 ml 960 ml 830 ml Output Urine Total 800 ml 750 ml 800 ml # Bowel Movements 0 0 0 Result Diagram: 08/09/17 0505 08/10/17 0506 Imaging Last Impressions Chest X-Ray 08/08/17 0908 Signed Impressions: Service Date/Time: Tuesday, August 08, 2017 09:21 - CONCLUSION: 1. Focal opacity in the right cardiophrenic angle now has the appearance of normal right hilar structures. Focal masses no longer suspected. 2. No acute cardiac pulmonary process. 3. Elevated right hemidiaphragm. Sincere Norton MD Procedures Stress test. Other Results Laboratory Tests Test 08/08/17 09:20 08/08/17 12:10 08/08/17 18:35 08/09/17 05:05 Acanthocytes 1+ Prothrombin Time 10.3 SEC Prothromb Time International Ratio 1.0 RATIO Activated Partial Thromboplast Time 28.7 SEC Blood Urea Nitrogen 15 MG/DL Creatinine 1.25 MG/DL Random Glucose 119 MG/DL Total Protein 7.0 GM/DL Albumin 3.5 GM/DL Calcium Level 8.1 MG/DL Magnesium Level 1.7 MG/DL Alkaline Phosphatase 53 U/L Aspartate Amino Transf (AST/SGOT) 96 U/L Alanine Aminotransferase (ALT/SGPT) 43 U/L Total Bilirubin 0.7 MG/DL Sodium Level 122 MEQ/L Potassium Level 4.6 MEQ/L Chloride Level 88 MEQ/L Carbon Dioxide Level 23.9 MEQ/L B-Type Natriuretic Peptide 48 PG/ML Lipase 211 U/L Serum Osmolality 260 MOSM/KG Troponin I 0.08 NG/ML Thyroid Stimulating Hormone 3rd Gen 3.460 uIU/ML White Blood Count 2.6 TH/MM3 Red Blood Count 3.49 MIL/MM3 Hemoglobin 11.1 GM/DL Hematocrit 30.8 % Mean Corpuscular Volume 88.2 FL Mean Corpuscular Hemoglobin 31.7 PG Mean Corpuscular Hemoglobin Concent 35.9 % Red Cell Distribution Width 13.1 % Platelet Count 120 TH/MM3 Mean Platelet Volume 7.7 FL Neutrophils (%) (Auto) 34.8 % Lymphocytes (%) (Auto) 48.3 % Monocytes (%) (Auto) 14.5 % Eosinophils (%) (Auto) 2.2 % Basophils (%) (Auto) 0.2 % Neutrophils # (Auto) 0.9 TH/MM3 Lymphocytes # (Auto) 1.2 TH/MM3 Monocytes # (Auto) 0.4 TH/MM3 Eosinophils # (Auto) 0.1 TH/MM3 Basophils # (Auto) 0.0 TH/MM3 CBC Comment AUTO DIFF Differential Total Cells Counted 100 Neutrophils % (Manual) 48 % Band Neutrophils % 3 % Lymphocytes % 39 % Monocytes % 9 % Basophils % 1 % Neutrophils # (Manual) 1.3 TH/MM3 Differential Comment FINAL DIFF MANUAL Platelet Estimate LOW Platelet Morphology Comment ENLARGED Total Creatine Kinase 1678 U/L Creatine Kinase MB 12.7 NG/ML Creatine Kinase MB % 0.8 % Test 08/10/17 05:06 Blood Urea Nitrogen 12 MG/DL Creatinine 0.98 MG/DL Random Glucose 121 MG/DL Calcium Level 8.3 MG/DL Phosphorus Level 2.6 MG/DL Magnesium Level 2.2 MG/DL Sodium Level 125 MEQ/L Potassium Level 3.4 MEQ/L Chloride Level 90 MEQ/L Carbon Dioxide Level 24.1 MEQ/L Anion Gap 11 MEQ/L Estimat Glomerular Filtration Rate 73 ML/MIN Objective Remarks GENERAL: Obese patient in no acute distress. SKIN: No rashes, ecchymoses or lesions. Cool and dry. HEAD: Atraumatic. Normocephalic. No temporal or scalp tenderness. EYES: Pupils equal round and reactive. Extraocular motions intact. NECK: Trachea midline. No JVD or lymphadenopathy. Supple, nontender, no meningeal signs. CARDIOVASCULAR: Regular rate and rhythm without murmurs, gallops, or rubs. RESPIRATORY: Clear to auscultation. Breath sounds equal bilaterally. GASTROINTESTINAL: Abdomen soft, non-tender, nondistended. MUSCULOSKELETAL: Extremities without clubbing, cyanosis, or edema. NEUROLOGICAL: Awake and alert. Medications and IVs Current Medications Medications (Trade) Dose Ordered Sig/Marcelo Route Start Time Stop Time Status Last Admin (NS Flush) 2 ml UNSCH PRN IVF 08/08/17 09:15 08/08/17 09:21 Sodium Chloride 1,000 ml @ 83 mls/hr Q12H3M IV 08/08/17 11:45 08/09/17 18:04 (Tylenol) 650 mg Q4H PRN PO 08/08/17 11:45 (Zofran Inj) 4 mg Q8HR PRN IV PUSH 08/08/17 11:45 (Ecotrin Ec) 81 mg DAILY PO 08/09/17 09:00 08/09/17 09:00 (Norvasc) 5 mg DAILY PO 08/09/17 09:00 08/09/17 09:00 (Flomax) 0.4 mg HS PO 08/08/17 21:00 08/09/17 20:59 (Augmentin) 875 mg Q12HR PO 08/08/17 12:15 08/09/17 20:59 (Morphine Inj) 2 mg Q4H PRN IV PUSH 08/08/17 12:15 (Duoneb Neb) 1 ampule Q4HR NEB NEB 08/09/17 20:00 08/10/17 07:45 (Mucinex Er) 600 mg BID PO 08/09/17 21:00 08/09/17 20:59 A/P Assessment and Plan - Hyponatremia- likely due to dehydration continue IV fluids, follow laboratory. to follow Urinary electrolytes added Sodium chloride by mouth in tablets. following Sodium levels. - Atypical Chest pain, in a patient with CAD status post stent placement, pain improved after nitroglycerine. Cardiology following asked for Stress test second part today. -Rhabdomyolysis, continue IV fluids worsening CK 1814 today. -possible pneumonia ( CXR few days ago with RLL opacity which now has resolved; patient has been on Augmentin at home). continue with antibiotic- will monitor temps, bronchodilator, Mucolytic and incentive spirometry. -leukopenia/ thrombocytopenia; stable will follow in am tomorrow. -electrolyte derangement replaced Potassium and Magnesium and following -hypertension; mild uncontrol continue monitoring. -Obesity strongly recommended diet and exercise as outpatient DVT prophylaxis with SCD's Discussed Condition With Patient and his in the room, Mrs. Fisher also with nurse. Discharge Planning Once cleared by Cardiology Mariusz Daniels MD Aug 10, 2017 09:01
[2017-08-10] MEDS: guaiFENesin E.R. 600 MG TAB PO SCH ×2 (09:04→21:38)
[2017-08-10] MEDS: ASPIRIN EC 81 MG TABEC PO SCH (09:05)
[2017-08-10] MEDS: AMOXICILLIN/CLAVULANATE K 875 MG TAB PO SCH ×2 (09:05→22:07)
[2017-08-10] MEDS: amLODIPine BESYLATE 5 MG TAB PO SCH (09:05)
[2017-08-10] MEDS ORDERED: POTASSIUM CHLORIDE 20 MEQ CONTROLLED RELEASE TAB PO ONE ×2 (09:15→12:00)
[2017-08-10] MEDS ORDERED: REGADENOSON INJ 0.4 MG/5 ML SYR ONE (09:55)
[2017-08-10] MEDS: SODIUM CHLORIDE 1 GRAM TAB PO SCH ×3 (11:59→17:24)
--- NOTE | 2017-08-10 12:39 | RADRPT ---
EXAM DATE/TIME: 08/09/2017 13:51 [facility] COMPARISON: No previous studies available for comparison. INDICATIONS : Substernal chest pain. Angina. Coronary artery disease. DOSE: 31.2 mCi Tc99m Myoview at stress. 30.1 mCi Tc99m Myoview at rest. 0.4 mg Lexiscan STRESS SYMPTOMS: Dyspnea and dizziness. EJECTION FRACTION: 65% MEDICAL HISTORY : Hypertension. Carcinoma, colon. Myocardial infarction. SURGICAL HISTORY : Coronary artery stent. ENCOUNTER: Initial ACUITY: 2 days PAIN SCALE: 5/10 LOCATION: Substernal chest TECHNIQUE: The patient underwent pharmacologic stress with infusion of prescribed dose. Continuous ECG tracing was monitored during stress. Gated SPECT imaging was performed after stress and conventional SPECT i maging was performed at rest. The examination was performed on a SPECT/CT scanner, both attenuation and non-corrected datasets were reviewed. FINDINGS: DISTRIBUTION: The maximum perfused segment at stress is in the anterior wall. PERFUSION STUDY: The pattern of perfusion at stress and reveals a fixed perfusion defect in the inferior wall. There i s no definite reversibility. GATED STUDY: There is intact wall motion and thickening without hypokinetic or dyskinetic segments. CONCLUSION: 1. No definite reversibility to suggest ischemia. Fixed perfusion defect inferiorly may represent cat or infarcts. 2. Normal wall motion with ejection fraction 65%. RISK CATEGORY: Low (<1% Annual Mortality Rate) Jamaal Brown MD on August 10, 2017 at 12:35 Board Certified Radiologist. This report was verified electronically.
[2017-08-10] MEDS ORDERED: amLODIPine BESYLATE 5 MG TAB PO ONE (16:15)
[2017-08-10] MEDS: TAMSULOSIN HCL 0.4 MG CAP PO SCH (21:38)
[2017-08-11] VITALS (9 sets, daily range): BP systolic 127–168; BP diastolic 62–78; PULSE 67–82; RESP 18–20; TEMP 97.8–98.6; O2SAT 95–98
[2017-08-11] MEDS: SODIUM CHLOR 0.9% 1000 ML INJ 1,000 ML IV SCH ×2 (04:03→08:06)
[2017-08-11] MEDS: RESP: ALBUTEROL 2.5 MG/IPRATROPIUM 0.5 MG NEB (SCH) NEB ×6 (04:10→23:29)
[2017-08-11] MEDS: SODIUM CHLORIDE 1 GRAM TAB PO SCH ×3 (08:05→17:02)
[2017-08-11] MEDS: guaiFENesin E.R. 600 MG TAB PO SCH ×2 (08:05→20:07)
[2017-08-11] MEDS: amLODIPine BESYLATE 5 MG TAB PO SCH (08:06)
[2017-08-11] MEDS: ASPIRIN EC 81 MG TABEC PO SCH (08:06)
[2017-08-11] MEDS: AMOXICILLIN/CLAVULANATE K 875 MG TAB PO SCH ×2 (08:06→20:08)
[2017-08-11 08:53] LABS: AUTOMATED NEUTROPHIL # 1.7 TH/MM3 (1.8-7.7); BASOPHIL % 0.3 % (0.0-2.0); EOSINOPHIL % 0.9 % (0.0-4.0); HEMATOCRIT 29.5 % (39.0-51.0); HEMOGLOBIN 11.1 GM/DL (13.0-17.0); LYMPH % 27.7 % (9.0-44.0); LYMPHOCYTE # 0.8 TH/MM3 (1.0-4.8); MEAN CELL VOLUME 88.6 FL (80.0-100.0); MEAN CORPUSCULAR HEMOGLOBIN 33.2 PG (27.0-34.0); MEAN PLATELET VOLUME 7.1 FL (7.0-11.0); MONO % 14.1 % (0.0-8.0); MONOCYTE # 0.4 TH/MM3 (0-0.9); PLATELET COUNT 134 TH/MM3 (150-450); RED BLOOD COUNT 3.34 MIL/MM3 (4.50-5.90); RED CELL DISTRIBUTION WIDTH 12.8 % (11.6-17.2)
[2017-08-11 08:54] LABS: MEAN CORPUSCULAR HGB CONC 37.5 % (32.0-36.0)
[2017-08-11 09:08] LABS: CALCIUM 8.1 MG/DL (8.5-10.1); CREATININE 0.92 MG/DL (0.60-1.30); MAGNESIUM 1.9 MG/DL (1.5-2.5)
[2017-08-11 09:46] LABS: OVALOCYTES 1+ (NORMAL)
--- NOTE | 2017-08-11 11:20 | HHI.PR ---
Subjective Remarks Follow up hyponatremia. Patient speaks Chinese primarily, some Luxembourgish. Translation service utilized. Patient states that he feels "so-so". No chest pain, dyspnea. Still lightheaded at times. Reports muscle spasm in legs. Objective Vitals Vital Signs Date Time Temp Pulse Resp B/P (MAP) Pulse Ox O2 Delivery O2 Flow Rate FiO2 08/11/17 09:33 Nasal Cannula 2.00 21 08/11/17 08:15 98 21 08/11/17 08:00 98.3 71 20 141/72 (95) 97 08/11/17 04:02 Nasal Cannula 2.00 08/11/17 04:00 97.8 70 19 168/78 (108) 97 08/11/17 00:00 98.2 68 18 156/78 (104) 96 08/10/17 22:59 Nasal Cannula 2.00 08/10/17 21:45 Room Air 08/10/17 20:30 97 21 08/10/17 20:00 98.2 68 18 156/78 (104) 96 08/10/17 18:23 76 08/10/17 17:12 76 08/10/17 16:07 85 08/10/17 16:06 98.7 79 18 145/74 (97) 98 08/10/17 14:35 70 08/10/17 13:00 68 08/10/17 12:31 68 08/10/17 12:29 98.6 72 18 149/70 (96) 96 I/O 08/10/17 08/10/17 08/10/17 08/11/17 08/11/17 08/11/17 07:00 15:00 23:00 07:00 15:00 23:00 Intake Total 1070 ml 840 ml 1239 ml Output Total 800 ml 700 ml 1050 ml Balance 270 ml 140 ml 189 ml Intake Oral 240 ml 840 ml 240 ml IV Total 830 ml 999 ml Output Urine Total 800 ml 700 ml 1050 ml # Bowel Movements 0 1 Result Diagram: 08/11/17 0456 08/11/17 0756 Imaging Last Impressions Myocardial Perfusion Scan Nuc Med 08/09/17 0000 Signed Impressions: Service Date/Time: Wednesday, August 09, 2017 13:51 - CONCLUSION: 1. No definite reversibility to suggest ischemia. Fixed perfusion defect inferiorly may represent prior infarcts. 2. Normal wall motion with ejection fraction 65%%. RISK CATEGORY: Low (<1%% Annual Mortality Rate) Jamaal Brown MD Chest X-Ray 08/08/17 0908 Signed Impressions: Service Date/Time: Tuesday, August 08, 2017 09:21 - CONCLUSION: 1. Focal opacity in the right cardiophrenic angle now has the appearance of normal right hilar structures. Focal masses no longer suspected. 2. No acute cardiac pulmonary process. 3. Elevated right hemidiaphragm. Sincere Norton MD Objective Remarks General: Elderly male in no acute distress. Heart: Regular rate and rhythm. No murmur. Lungs: Clear to auscultation bilaterally. No wheezes, rales, or rhonchi. Breathing is nonlabored. Abdomen: Soft, nontender, nondistended. Extremities: No lower extremity edema. No calf tenderness. Psych: Alert and oriented. Procedures None Urinary Catheter: No Vascular Central Line Catheter: No A/P Problem List: (1) Chest pain ICD Code: R07.9 - Chest pain, unspecified (2) Elevated troponin ICD Code: R74.8 - Abnormal levels of other serum enzymes (3) Hyponatremia ICD Code: E87.1 - Hypo-osmolality and hyponatremia Assessment and Plan 1. Hyponatremia: Sodium stable at 125. Sodium chloride tablets. Adjust diet to lift sodium restriction. 2. Hypokalemia: Improved. Continue supplementation. 3. Atypical chest pain, CAD: Appreciate cardiology recommendations. Stress test is negative. 4. Rhabdomyolysis: Continue IV fluids. 5. Possible pneumonia: Continue Augmentin. 6. Hypertension: Continue amlodipine. 7. DVT prophylaxis: SCDs. Discharge Planning Possible discharge home tomorrow if electrolytes improved. Cleared for discharge by cardiology. Problem Qualifiers (1) Chest pain: Qualified Codes: R07.9 - Chest pain, unspecified Byron Love MD Aug 11, 2017 11:20
[2017-08-11] MEDS ORDERED: POTASSIUM PHOSPHATE MONOBASIC 500 MG TAB PO ONE (12:30)
[2017-08-11] MEDS: TAMSULOSIN HCL 0.4 MG CAP PO SCH (20:08)
[2017-08-12] VITALS (8 sets, daily range): BP systolic 134–163; BP diastolic 64–93; PULSE 72–126; RESP 18–24; TEMP 97.9–98.4; O2SAT 95–97
[2017-08-12] MEDS: RESP: ALBUTEROL 2.5 MG/IPRATROPIUM 0.5 MG NEB (SCH) NEB ×6 (03:08→23:37)
[2017-08-12] MEDS: AMOXICILLIN/CLAVULANATE K 875 MG TAB PO SCH ×2 (08:18→20:30)
[2017-08-12] MEDS: SODIUM CHLORIDE 1 GRAM TAB PO SCH ×3 (08:19→18:02)
[2017-08-12] MEDS: ASPIRIN EC 81 MG TABEC PO SCH (08:19)
[2017-08-12] MEDS: guaiFENesin E.R. 600 MG TAB PO SCH (08:19)
[2017-08-12] MEDS: amLODIPine BESYLATE 5 MG TAB PO SCH (08:19)
[2017-08-12 09:25] LABS: BICARBONATE 23.4 MEQ/L (21.0-32.0); CALCIUM 8.2 MG/DL (8.5-10.1); CREATININE 0.83 MG/DL (0.60-1.30); MAGNESIUM 1.8 MG/DL (1.5-2.5); PHOSPHORUS 2.3 MG/DL (2.5-4.9)
--- NOTE | 2017-08-12 11:16 | PQ ---
Physician Query Response Document PATIENT: LIONEL LOPEZ : 1935 ADMIT DATE: 08/08/2017 11:28 AM DISCH DATE: RESPONDING PROVIDER #: lvan QUERY TEXT: CDS Clarification Chest pain d/t angina in a 82 y/o male with CAD who improved with Nitro patch. Other explanation of clinical findings. Unable to determine (no explanation for clinical findings). The patient's Clinical Indicators include: The medical record reflects the following clinical findings, treatment, and risk factors. * Clinical Indicators: Chest Pain - substernal, diaphoresis, dizziness * Risk Factors: CAD s/p stent 3 years prior, obesity, recent pneumonia * Treatment: Nitroglycerine patch Please clarify and document your clinical opinion in the progress notes and discharge summary includi ng the definitive and/or presumptive diagnosis (suspected or probable), related to the above clinical findings. Please include clinical findings supporting your diagnosis. Thank you, Tamra Newman Please Contact [employer] [place] @ [email or web address] [phone] for assistance. Query created by: Tamra Newman on 08/12/2017 8:16 AM RESPONSE TEXT: Chest pain is atypical. This is not cardiac in nature. Electronically signed by: Rachael Grider 08/12/2017 11:12 AM
--- NOTE | 2017-08-12 12:51 | HHI.PR ---
Subjective Remarks Follow-up for hyponatremia Translation phone call use from [place] for [place] speaking patient. is at the bedside during the interview. Patient stated that he continues to feel extremely fatigued. He stated that when he tries to get up he feels lightheadedness like he wants to pass out. Patient stated that he has been having this problem for a while since he had a heart attack. He denies any chest pain. He also states he has shortness of breathing but also stated this has been ongoing. He feels like it is worse in the past few weeks. Otherwise patient complaining about not be able to get his sleep. His is asking for sleeping aid. Denies any headache, visual changes, focal neurological deficits. per patient is not drinking or eating much at all. Objective Vitals Vital Signs Date Time Temp Pulse Resp B/P (MAP) Pulse Ox O2 Delivery O2 Flow Rate FiO2 08/12/17 10:39 96 08/12/17 08:00 97.9 76 24 163/81 (108) 97 08/12/17 04:04 98.0 80 18 154/67 (96) 96 08/12/17 00:00 98.1 126 18 162/93 (116) 97 08/11/17 20:00 98.6 82 18 168/62 (97) 96 08/11/17 20:00 Nasal Cannula 2.00 08/11/17 19:41 97 21 08/11/17 16:00 98.5 67 20 133/63 (86) 95 08/11/17 15:21 98 21 I/O 08/11/17 08/11/17 08/11/17 08/12/17 08/12/17 08/12/17 07:00 15:00 23:00 07:00 15:00 23:00 Intake Total 1239 ml 480 ml Output Total 1050 ml 400 ml Balance 189 ml 80 ml Intake Oral 240 ml 480 ml IV Total 999 ml Output Urine Total 1050 ml 400 ml # Voids 3 # Bowel Movements 0 Result Diagram: 08/11/17 0456 08/12/17 0757 Objective Remarks GENERAL: in NAD CARDIOVASCULAR: Regular rate and rhythm without murmurs, gallops, or rubs. RESPIRATORY: Breath sounds equal bilaterally. No accessory muscle use. GASTROINTESTINAL: Abdomen soft, non-tender, nondistended. MUSCULOSKELETAL: No cyanosis, or edema. Procedures None Medications and IVs Current Medications Sodium Chloride (NS Flush) 2 ml UNSCH PRN IVF FLUSH AFTER USING IV ACCESS Last administered on 08/08/17at 09:21; Start 08/08/17 at 09:15 Aspirin (Aspirin Chew) 162 mg ONCE ONCE PO Last administered on 08/08/17at 10: 33; Start 08/08/17 at 10:30; Stop 08/08/17 at 10:31; Status DC Nitroglycerin (Nitroglycerin 2% Oint) 0.5 inch ONCE ONCE TOP Last administered on 08/08/17at 10:33; Start 08/08/17 at 10:30; Stop 08/08/17 at 10:31 ; Status DC Sodium Chloride 1,000 ml @ 100 mls/hr Q10H IV Last administered on 08/11/17at 08:06; Start 08/08/17 at 11:45; Stop 08/11/17 at 11:18; Status DC Acetaminophen (Tylenol) 650 mg Q4H PRN PO FEVER/PAIN 1-10; Start 08/08/17 at 11 :45 Ondansetron HCl (Zofran Inj) 4 mg Q8HR PRN IV PUSH NAUSEA; Start 08/08/17 at 11 :45 Aspirin (Ecotrin Ec) 81 mg DAILY PO Last administered on 08/12/17at 08:19; Start 08/09/17 at 09:00 Amlodipine Besylate (Norvasc) 5 mg DAILY PO Last administered on 08/10/17at 09: 05; Start 08/09/17 at 09:00; Stop 08/10/17 at 16:03; Status DC Tamsulosin HCl (Flomax) 0.4 mg HS PO Last administered on 08/11/17at 20:08; Start 08/08/17 at 21:00 Amoxicillin/ Clavulanate Potassium (Augmentin) 875 mg Q12HR PO Last administered on 08/12/17at 08:18; Start 08/08/17 at 12:15 Morphine Sulfate (Morphine Inj) 2 mg Q4H PRN IV PUSH CHEST PAIN; Start at 12:15 Pneumococcal Polyvalent Vaccine (Pneumovax-23 Inj) 25 mcg ONCE ONCE IM ; Start 08/09/17 at 10:00; Stop 08/09/17 at 10:01; Status DC Magnesium Sulfate/ Dextrose 100 ml @ 100 mls/hr Q1H IV Last administered on 04/18at 10:15; Start 08/09/17 at 09:15; Stop 08/09/17 at 11:14; Status DC Potassium Chloride (KCl) 40 meq ONCE ONCE PO Last administered on 08/09/17at 10 :00; Start 08/09/17 at 09:15; Stop 08/09/17 at 09:17; Status DC Potassium Chloride (KCl) 20 meq ONCE ONCE PO Last administered on 08/09/17at 18 :05; Start 08/09/17 at 12:00; Stop 08/09/17 at 12:01; Status DC Albuterol/ Ipratropium (Duoneb Neb) 1 ampule Q4HR NEB NEB Last administered on 08/12/17at 10:35; Start 08/09/17 at 20:00 Guaifenesin (Mucinex Er) 600 mg BID PO Last administered on 08/12/17at 08:19; Start 08/09/17 at 21:00 Sodium Chloride (Sodium Chloride) 1 gm TID PO Last administered on 08/12/17at 12 :08; Start 08/10/17 at 09:05 Potassium Chloride (KCl) 40 meq ONCE ONCE PO Last administered on 08/10/17at 09 :18; Start 08/10/17 at 09:15; Stop 08/10/17 at 09:16; Status DC Potassium Chloride (KCl) 20 meq ONCE ONCE PO Last administered on 08/10/17at 12 :09; Start 08/10/17 at 12:00; Stop 08/10/17 at 12:01; Status DC Regadenoson (Lexiscan Inj) 0.4 mg STK-MED ONCE .ROUTE Last administered on 08/10at 09:55; Start 08/10/17 at 09:55; Stop 08/10/17 at 09:56; Status DC Amlodipine Besylate (Norvasc) 10 mg DAILY PO Last administered on 08/12/17at 08: 19; Start 08/11/17 at 09:00 Amlodipine Besylate (Norvasc) 5 mg ONCE ONCE PO Last administered on at 16:49; Start 08/10/17 at 16:15; Stop 3/12/18 at 16:16; Status DC Potassium Phosphate (K-Phos) 500 mg ONCE ONCE PO Last administered on at 12:50; Start 08/11/17 at 12:30; Stop 08/11/17 at 12:31; Status DC Sodium Chloride 1,000 ml @ 70 mls/hr [id number] IV ; Start 08/12/17 at 12:45; Status UNV A/P Problem List: (1) Chest pain ICD Code: R07.9 - Chest pain, unspecified (2) Elevated troponin ICD Code: R74.8 - Abnormal levels of other serum enzymes (3) Hyponatremia ICD Code: E87.1 - Hypo-osmolality and hyponatremia Assessment and Plan This is a 82-year-old male presented with fatigue and shortness of breathing Hyponatremia -Patient's sodium has been stable at 125. He is euvolemic. He is there is no sign of being volume overloaded. His sodium osmolality 260. -He is symptomatic. Sodium dropped today to 120. Patient is on sodium tablets 1 g 3 times daily. Will start normal saline since he does have decreased oral intake. Repeat sodium levels at 1600 today. Adjust accordingly. Lightheadedness -Labs reviewed. Will get orthostatics. This may be secondary to his hyponatremia. Shortness of breathing -BMP was within normal limits. Chest x-ray negative. Clinically his lungs are clear he is not on oxygen. Will check an echo. His hemoglobin has also been stable at 11. Patient is being treated empirically for pneumonia, this is very unlikely the cause. Most likely etiology is due to underlying coronary disease since this patient stated has been what has been happening for a while but have worsened recently. Hypokalemia -Replenish. Atypical chest pain, CAD - Appreciate cardiology recommendations. Stress test is negative but shows a fixed defect. Rhabdomyolysis -Recheck CK. Restart fluids. Empiric treatment for pneumonia -Patient does not show any signs of pneumonia. He was started on Augmentin. Will complete its course. Hypertension - Continue amlodipine. DVT prophylaxis -SCDs Discharge Planning Sodium worsened at 120. He would need to remain hospitalized for treatment and neuro checks. Problem Qualifiers (1) Chest pain: Qualified Codes: R07.9 - Chest pain, unspecified Rachael Grider MD Aug 12, 2017 12:51
[2017-08-12] MEDS: SODIUM CHLOR 0.9% 1000 ML INJ 1,000 ML IV SCH (14:37)
--- NOTE | 2017-08-12 17:59 | ECHRPT ---
Indication: HYPERTENSIVE HEART DISEASE CONCLUSIONS Normal left ventricular size. Wall thickness is normal. The left ventricular systolic function is normal with an estimated ejection fraction of 55%. Trace mitral valve regurgitation. BP: / HR: Rhythm: MEASUREMENTS (Male / Female) Normal Values Technical Quality: 2D ECHO LV Diastolic Diameter PLAX 4.6 cm 4.2 - 5.9 / 3.9 - 5.3 cm LV Systolic Diameter PLAX 3.8 cm IVS Diastolic Thickness 1.1 cm 0.6 - 1.0 / 0.6 - 0.9 cm LVPW Diastolic Thickness 0.9 cm 0.6 - 1.0 / 0.6 - 0.9 cm LV Relative Wall Thickness 0.4 DOPPLER Mitral E Point Velocity 66.4 cm/s Mitral A Point Velocity 88.3 cm/s Mitral E to A Ratio 0.8 TR Peak Velocity 259.0 cm/s TR Peak Gradient 26.8 mmHg FINDINGS LEFT VENTRICLE Normal left ventricular size. Wall thickness is normal. The left ventricular systolic function is normal with an estimated ejection fraction of 55%. RIGHT VENTRICLE Normal right ventricular size and systolic function. LEFT ATRIUM The left atrial size is normal. RIGHT ATRIUM The right atrial size is normal. ATRIAL SEPTUM Normal atrial septal thickness without atrial level shunting by limited color doppler interrogation. AORTA The aortic root and proximal ascending aorta are normal in size on limited imaging. MITRAL VALVE Trace mitral valve regurgitation. AORTIC VALVE Trileaflet aortic valve. No aortic valve stenosis or regurgitation. TRICUSPID VALVE Structurally normal tricuspid valve. No tricuspid valve stenosis or regurgitation. PULMONARY VALVE The pulmonary valve is not well visualized. VESSELS The inferior vena cava is normal in size. PERICARDIUM No pericardial effusion. Soha Kaba MD, FACC (Electronically Signed) Final Date:12 August 2017 17:58
[2017-08-12] MEDS ORDERED: 3% SALINE INJ 100 ML IV ONE ×2 (18:45→22:45)
[2017-08-12] MEDS: ZOLPIDEM TARTRATE 5 MG TAB PO PRN (20:30)
[2017-08-12] MEDS: TAMSULOSIN HCL 0.4 MG CAP PO SCH (20:30)
[2017-08-13] VITALS (11 sets, daily range): BP systolic 109–140; BP diastolic 54–80; PULSE 66–97; RESP 16–20; TEMP 96.4–98.9; O2SAT 93–98
[2017-08-13] MEDS: RESP: ALBUTEROL 2.5 MG/IPRATROPIUM 0.5 MG NEB (SCH) NEB ×4 (03:50→15:37)
[2017-08-13] MEDS: SODIUM CHLOR 0.9% 1000 ML INJ 1,000 ML IV SCH (06:00)
[2017-08-13 06:22] LABS: HEMATOCRIT 29.2 % (39.0-51.0); HEMOGLOBIN 10.8 GM/DL (13.0-17.0); MEAN CELL VOLUME 87.3 FL (80.0-100.0); MEAN CORPUSCULAR HEMOGLOBIN 32.2 PG (27.0-34.0); MEAN PLATELET VOLUME 6.9 FL (7.0-11.0); PLATELET COUNT 171 TH/MM3 (150-450); RED BLOOD COUNT 3.34 MIL/MM3 (4.50-5.90); WHITE BLOOD COUNT 4.7 TH/MM3 (4.0-11.0)
[2017-08-13] MEDS ORDERED: 3% SALINE INJ 100 ML IV ONE ×2 (07:00→11:45)
[2017-08-13 07:02] LABS: MEAN CORPUSCULAR HGB CONC 36.9 % (32.0-36.0)
[2017-08-13 07:07] LABS: BICARBONATE 22.8 MEQ/L (21.0-32.0); CREATININE 0.88 MG/DL (0.60-1.30)
[2017-08-13] MEDS: AMOXICILLIN/CLAVULANATE K 875 MG TAB PO SCH (09:57)
[2017-08-13] MEDS: SODIUM CHLORIDE 1 GRAM TAB PO SCH ×3 (09:57→18:56)
[2017-08-13] MEDS: ASPIRIN EC 81 MG TABEC PO SCH (09:58)
[2017-08-13] MEDS: amLODIPine BESYLATE 5 MG TAB PO SCH (09:58)
[2017-08-13] MEDS: SODIUM CHLORIDE 0.9% FLUSH 10 ML FLUSH IVF PRN (09:59)
--- NOTE | 2017-08-13 11:52 | HHI.PR ---
Subjective Remarks Follow-up for pneumonia and hyponatremia [place] phone translation. Patient stated that he feels a lot better. He does not feel as fatigued. Feels like he got a good night rest. Denies any headache, visual changes, focal neurological deficits. He says he feels more energized to get up right now. He still has decreased oral intake. Denies any shortness of breathing or cough. He denies any type of pain. Objective Vitals Vital Signs Date Time Temp Pulse Resp B/P (MAP) Pulse Ox O2 Delivery O2 Flow Rate FiO2 08/13/17 08:00 97.2 86 16 124/62 (82) 95 08/13/17 07:42 96 08/13/17 07:39 97 08/13/17 04:00 Nasal Cannula 2.00 08/13/17 04:00 98.9 76 20 128/80 (96) 97 08/13/17 04:00 75 08/13/17 00:00 Nasal Cannula 2.00 08/13/17 00:00 75 08/13/17 00:00 98.5 85 20 140/67 (91) 93 08/12/17 20:45 96 21 08/12/17 20:00 98.4 81 20 134/64 (87) 96 08/12/17 20:00 Nasal Cannula 2.00 08/12/17 16:00 98.2 73 20 148/77 (100) 95 08/12/17 12:00 97.9 72 20 140/72 (94) 96 I/O 08/12/17 08/12/17 08/12/17 08/13/17 08/13/17 08/13/17 07:00 15:00 23:00 07:00 15:00 23:00 Intake Total 720 ml 700 ml Output Total 400 ml Balance 720 ml 300 ml Intake Oral 720 ml 600 ml IV Total 100 ml Output Urine Total 400 ml # Voids 3 4 # Bowel Movements 0 1 0 Result Diagram: 08/13/17 0605 08/13/17 1012 Objective Remarks GENERAL: in NAD CARDIOVASCULAR: Regular rate and rhythm without murmurs, gallops, or rubs. RESPIRATORY: Breath sounds equal bilaterally. No accessory muscle use. GASTROINTESTINAL: Abdomen soft, non-tender, nondistended. MUSCULOSKELETAL: No cyanosis, or edema. Procedures None Medications and IVs Current Medications Sodium Chloride (NS Flush) 2 ml UNSCH PRN IVF FLUSH AFTER USING IV ACCESS Last administered on 08/13/17at 09:59; Start 08/08/17 at 09:15 Aspirin (Aspirin Chew) 162 mg ONCE ONCE PO Last administered on 08/08/17at 10: 33; Start 08/08/17 at 10:30; Stop 08/08/17 at 10:31; Status DC Nitroglycerin (Nitroglycerin 2% Oint) 0.5 inch ONCE ONCE TOP Last administered on 08/08/17at 10:33; Start 08/08/17 at 10:30; Stop 08/08/17 at 10:31 ; Status DC Sodium Chloride 1,000 ml @ 100 mls/hr Q10H IV Last administered on 08/11/17at 08:06; Start 08/08/17 at 11:45; Stop 08/11/17 at 11:18; Status DC Acetaminophen (Tylenol) 650 mg Q4H PRN PO FEVER/PAIN 1-10; Start 08/08/17 at 11 :45 Ondansetron HCl (Zofran Inj) 4 mg Q8HR PRN IV PUSH NAUSEA; Start 08/08/17 at 11 :45 Aspirin (Ecotrin Ec) 81 mg DAILY PO Last administered on 08/13/17at 09:58; Start 08/09/17 at 09:00 Amlodipine Besylate (Norvasc) 5 mg DAILY PO Last administered on 08/10/17at 09: 05; Start 08/09/17 at 09:00; Stop 08/10/17 at 16:03; Status DC Tamsulosin HCl (Flomax) 0.4 mg HS PO Last administered on 08/12/17at 20:30; Start 08/08/17 at 21:00 Amoxicillin/ Clavulanate Potassium (Augmentin) 875 mg Q12HR PO Last administered on 08/13/17at 09:57; Start 08/08/17 at 12:15 Morphine Sulfate (Morphine Inj) 2 mg Q4H PRN IV PUSH CHEST PAIN; Start at 12:15 Pneumococcal Polyvalent Vaccine (Pneumovax-23 Inj) 25 mcg ONCE ONCE IM ; Start 08/09/17 at 10:00; Stop 08/09/17 at 10:01; Status DC Magnesium Sulfate/ Dextrose 100 ml @ 100 mls/hr Q1H IV Last administered on 04/18at 10:15; Start 08/09/17 at 09:15; Stop 08/09/17 at 11:14; Status DC Potassium Chloride (KCl) 40 meq ONCE ONCE PO Last administered on 08/09/17at 10 :00; Start 08/09/17 at 09:15; Stop 08/09/17 at 09:17; Status DC Potassium Chloride (KCl) 20 meq ONCE ONCE PO Last administered on 08/09/17at 18 :05; Start 08/09/17 at 12:00; Stop 08/09/17 at 12:01; Status DC Albuterol/ Ipratropium (Duoneb Neb) 1 ampule Q4HR NEB NEB Last administered on 08/13/17at 11:23; Start 08/09/17 at 20:00 Guaifenesin (Mucinex Er) 600 mg BID PO Last administered on 08/12/17at 08:19; Start 08/09/17 at 21:00; Stop 08/12/17 at 18:54; Status DC Sodium Chloride (Sodium Chloride) 1 gm TID PO Last administered on 08/13/17at 09 :57; Start 08/10/17 at 09:05 Potassium Chloride (KCl) 40 meq ONCE ONCE PO Last administered on 08/10/17at 09 :18; Start 08/10/17 at 09:15; Stop 08/10/17 at 09:16; Status DC Potassium Chloride (KCl) 20 meq ONCE ONCE PO Last administered on 08/10/17at 12 :09; Start 08/10/17 at 12:00; Stop 08/10/17 at 12:01; Status DC Regadenoson (Lexiscan Inj) 0.4 mg STK-MED ONCE .ROUTE Last administered on 08/10at 09:55; Start 08/10/17 at 09:55; Stop 08/10/17 at 09:56; Status DC Amlodipine Besylate (Norvasc) 10 mg DAILY PO Last administered on 08/13/17at 09: 58; Start 08/11/17 at 09:00 Amlodipine Besylate (Norvasc) 5 mg ONCE ONCE PO Last administered on at 16:49; Start 08/10/17 at 16:15; Stop 08/10/17 at 16:16; Status DC Potassium Phosphate (K-Phos) 500 mg ONCE ONCE PO Last administered on at 12:50; Start 08/11/17 at 12:30; Stop 08/11/17 at 12:31; Status DC Sodium Chloride 1,000 ml @ 60 mls/hr [id number] IV Last administered on at 06:00; Start 08/12/17 at 12:45 Zolpidem Tartrate (Ambien) 5 mg HS PRN PO insomnia Last administered on at 20:30; Start 08/12/17 at 18:45 Sodium Chloride 100 ml @ 10 mls/hr ONCE ONCE IV Last administered on at 19:20; Start 08/12/17 at 18:45; Stop 08/13/17 at 04:44; Status DC Sodium Chloride 100 ml @ 10 mls/hr ONCE ONCE IV ; Start 08/12/17 at 22:45; Stop 08/13/17 at 08:44; Status DC Sodium Chloride 100 ml @ 10 mls/hr ONCE ONCE IV Last administered on at 08:14; Start 08/13/17 at 07:00; Stop 08/13/17 at 16:59 Sodium Chloride 100 ml @ 10 mls/hr ONCE ONCE IV ; Start 08/13/17 at 11:45; Stop 08/13/17 at 21:44; Status UNV A/P Problem List: (1) Chest pain ICD Code: R07.9 - Chest pain, unspecified (2) Elevated troponin ICD Code: R74.8 - Abnormal levels of other serum enzymes (3) Hyponatremia ICD Code: E87.1 - Hypo-osmolality and hyponatremia Assessment and Plan This is a 82-year-old male presented with fatigue and shortness of breathing Acute hyponatremia, euvolemic -Sodium is improving with 3% saline boluses. Sodium went from 120 yesterday and now 124. Will give another bolus. May consider hypertonic drip depending on next value. -At the moment fatigue has improved and there are no neurological deficits or signs. Continue to monitor sodium closely. Shortness of breathing, resolved. -BMP was within normal limits. Chest x-ray negative. Clinically his lungs are clear he is not on oxygen. ECHO ejection fraction 55%. Reviewed.. His hemoglobin has also been stable at 11. -Symptoms seem to resolved. He does not have any symptoms or clinical signs of pneumonia. Will discontinue Augmentin since he is completed at least 5 days of Augmentin. Per his he completed 7 days. Hypokalemia -Replenish. Atypical chest pain, CAD - Appreciate cardiology recommendations. Stress test is negative but shows a fixed defect. Rhabdomyolysis -CK is improving. Hypertension - Continue amlodipine. DVT prophylaxis -SCDs Discharge Planning Patient requires continued hospitalization due to sodium decreasing and now only improving with hypertonic saline. Problem Qualifiers (1) Chest pain: Qualified Codes: R07.9 - Chest pain, unspecified Rachael Grider MD Aug 13, 2017 11:52
[2017-08-13 16:39] LABS: ALBUMIN 3.7 GM/DL (3.4-5.0); DIRECT BILIRUBIN ADULT 0.2 MG/DL (0.0-0.2)
[2017-08-13 16:50] LABS: INDIRECT BILIRUBIN 0.6 MG/DL (0.0-0.8); TOTAL BILIRUBIN ADULT 0.8 MG/DL (0.2-1.0); TOTAL PROTEIN 6.7 GM/DL (6.4-8.2)
[2017-08-13 17:17] LABS: SODIUM,RANDOM URINE 45 MEQ/L
[2017-08-13 17:29] LABS: OSMOLALITY,URINE 581 MOSM/KG (300-1300)
[2017-08-13] MEDS ORDERED: 3% SALINE INJ 250 ML IV ONE (19:45)
[2017-08-13] MEDS: TAMSULOSIN HCL 0.4 MG CAP PO SCH (21:15)
[2017-08-13] MEDS: ZOLPIDEM TARTRATE 5 MG TAB PO PRN (21:16)
[2017-08-14] VITALS (13 sets, daily range): BP systolic 118–146; BP diastolic 58–96; PULSE 63–100; RESP 20; TEMP 97.4–98.5; O2SAT 95–97
[2017-08-14 08:44] LABS: HEMATOCRIT 30.6 % (39.0-51.0); HEMOGLOBIN 11.1 GM/DL (13.0-17.0); MEAN CELL VOLUME 88.7 FL (80.0-100.0); MEAN CORPUSCULAR HEMOGLOBIN 32.1 PG (27.0-34.0); MEAN PLATELET VOLUME 6.9 FL (7.0-11.0); PLATELET COUNT 207 TH/MM3 (150-450); RED BLOOD COUNT 3.44 MIL/MM3 (4.50-5.90); RED CELL DISTRIBUTION WIDTH 13.3 % (11.6-17.2); WHITE BLOOD COUNT 4.6 TH/MM3 (4.0-11.0)
[2017-08-14 09:05] LABS: MEAN CORPUSCULAR HGB CONC 36.2 % (32.0-36.0)
[2017-08-14 09:18] LABS: BICARBONATE 24.6 MEQ/L (21.0-32.0); CREATININE 1.01 MG/DL (0.60-1.30)
[2017-08-14] MEDS: SODIUM CHLORIDE 1 GRAM TAB PO SCH ×3 (09:23→18:10)
[2017-08-14] MEDS: amLODIPine BESYLATE 5 MG TAB PO SCH (09:23)
[2017-08-14] MEDS: ASPIRIN EC 81 MG TABEC PO SCH (09:23)
[2017-08-14] MEDS: SODIUM CHLORIDE 0.9% FLUSH 10 ML FLUSH IVF PRN (09:23)
--- NOTE | 2017-08-14 15:45 | HHI.PR ---
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 Patient stated that he feels a lot better. He stated that he is not as fatigued. He is very anxious to go home. Denies any chest pain or shortness of breathing. He stated that he is urinating a lot more. Denies any headaches, visual changes, focal neurological deficits. He has no other complaints. Objective Vitals Vital Signs Date Time Temp Pulse Resp B/P (MAP) Pulse Ox O2 Delivery O2 Flow Rate FiO2 08/14/17 12:00 97.4 81 20 134/63 (86) 97 08/14/17 08:06 84 08/14/17 08:00 97.9 72 20 135/61 (85) 95 08/14/17 07:55 Room Air 08/14/17 04:04 98.5 76 20 146/96 (113) 96 08/14/17 04:00 Nasal Cannula 2.00 08/14/17 04:00 63 08/14/17 00:06 97.5 75 20 123/58 (79) 97 08/14/17 00:00 63 08/14/17 00:00 Room Air 08/13/17 20:00 Room Air 08/13/17 20:00 81 08/13/17 18:04 96.4 76 20 126/68 (87) 97 08/13/17 16:00 97.4 66 16 128/60 (82) 97 08/13/17 15:56 82 I/O 08/13/17 08/13/17 08/13/17 08/14/17 08/14/17 08/14/17 07:00 15:00 23:00 07:00 15:00 23:00 Intake Total 700 ml 640 ml 80 ml Output Total 400 ml 600 ml 550 ml Balance 300 ml 40 ml -470 ml Intake Oral 600 ml 540 ml 80 ml IV Total 100 ml 100 ml Output Urine Total 400 ml 600 ml 550 ml # Bowel Movements 0 1 Result Diagram: 08/14/17 0757 08/14/17 0757 Objective Remarks GENERAL: in NAD CARDIOVASCULAR: Regular rate and rhythm without murmurs, gallops, or rubs. RESPIRATORY: Breath sounds equal bilaterally. No accessory muscle use. GASTROINTESTINAL: Abdomen soft, non-tender, nondistended. MUSCULOSKELETAL: No cyanosis, or edema. Procedures None Medications and IVs Current Medications Sodium Chloride (NS Flush) 2 ml UNSCH PRN IVF FLUSH AFTER USING IV ACCESS Last administered on 08/14/17 09:23; Start 08/08/17 at 09:15 Aspirin (Aspirin Chew) 162 mg ONCE ONCE PO Last administered on 08/08/17at 10: 33; Start 08/08/17 at 10:30; Stop 08/08/17 at 10:31; Status DC Nitroglycerin (Nitroglycerin 2% Oint) 0.5 inch ONCE ONCE TOP Last administered on 08/08/17at 10:33; Start 08/08/17 at 10:30; Stop 08/08/17 at 10:31 ; Status DC Sodium Chloride 1,000 ml @ 100 mls/hr Q10H IV Last administered on 08/11/17at 08:06; Start 08/08/17 at 11:45; Stop 08/11/17 at 11:18; Status DC Acetaminophen (Tylenol) 650 mg Q4H PRN PO FEVER/PAIN 1-10; Start 08/08/17 at 11 :45 Ondansetron HCl (Zofran Inj) 4 mg Q8HR PRN IV PUSH NAUSEA; Start 08/08/17 at 11 :45 Aspirin (Ecotrin Ec) 81 mg DAILY PO Last administered on 08/14/17at 09:23; Start 08/09/17 at 09:00 Amlodipine Besylate (Norvasc) 5 mg DAILY PO Last administered on 08/10/17at 09: 05; Start 08/09/17 at 09:00; Stop 08/10/17 at 16:03; Status DC Tamsulosin HCl (Flomax) 0.4 mg HS PO Last administered on 08/13/17at 21:15; Start 08/08/17 at 21:00 Amoxicillin/ Clavulanate Potassium (Augmentin) 875 mg Q12HR PO Last administered on 08/13/17at 09:57; Start 08/08/17 at 12:15; Stop 08/13/17 at 11:48 ; Status DC Morphine Sulfate (Morphine Inj) 2 mg Q4H PRN IV PUSH CHEST PAIN; Start at 12:15 Pneumococcal Polyvalent Vaccine (Pneumovax-23 Inj) 25 mcg ONCE ONCE IM ; Start 08/09/17 at 10:00; Stop 08/09/17 at 10:01; Status DC Magnesium Sulfate/ Dextrose 100 ml @ 100 mls/hr Q1H IV Last administered on 04/18at 10:15; Start 08/09/17 at 09:15; Stop 08/09/17 at 11:14; Status DC Potassium Chloride (KCl) 40 meq ONCE ONCE PO Last administered on 08/09/17at 10 :00; Start 08/09/17 at 09:15; Stop 08/09/17 at 09:17; Status DC Potassium Chloride (KCl) 20 meq ONCE ONCE PO Last administered on 08/09/17at 18 :05; Start 08/09/17 at 12:00; Stop 08/09/17 at 12:01; Status DC Albuterol/ Ipratropium (Duoneb Neb) 1 ampule Q4HR NEB NEB Last administered on 08/13/17at 15:37; Start 08/09/17 at 20:00; Stop 08/13/17 at 19:59; Status DC Guaifenesin (Mucinex Er) 600 mg BID PO Last administered on 08/12/17at 08:19; Start 08/09/17 at 21:00; Stop 08/12/17 at 18:54; Status DC Sodium Chloride (Sodium Chloride) 1 gm TID PO Last administered on 08/14/17at 12 :57; Start 08/10/17 at 09:05 Potassium Chloride (KCl) 40 meq ONCE ONCE PO Last administered on 08/10/17at 09 :18; Start 08/10/17 at 09:15; Stop 08/10/17 at 09:16; Status DC Potassium Chloride (KCl) 20 meq ONCE ONCE PO Last administered on 08/10/17at 12 :09; Start 08/10/17 at 12:00; Stop 08/10/17 at 12:01; Status DC Regadenoson (Lexiscan Inj) 0.4 mg STK-MED ONCE .ROUTE Last administered on 08/10at 09:55; Start 08/10/17 at 09:55; Stop 08/10/17 at 09:56; Status DC Amlodipine Besylate (Norvasc) 10 mg DAILY PO Last administered on 08/14/17at 09: 23; Start 08/11/17 at 09:00 Amlodipine Besylate (Norvasc) 5 mg ONCE ONCE PO Last administered on at 16:49; Start 08/10/17 at 16:15; Stop 08/10/17 at 16:16; Status DC Potassium Phosphate (K-Phos) 500 mg ONCE ONCE PO Last administered on at 12:50; Start 08/11/17 at 12:30; Stop 08/11/17 at 12:31; Status DC Sodium Chloride 1,000 ml @ 60 mls/hr [id number] IV Last administered on at 06:00; Start 08/12/17 at 12:45; Stop 08/13/17 at 13:02; Status DC Zolpidem Tartrate (Ambien) 5 mg HS PRN PO insomnia Last administered on at 21:16; Start 08/12/17 at 18:45 Sodium Chloride 100 ml @ 10 mls/hr ONCE ONCE IV Last administered on at 19:20; Start 08/12/17 at 18:45; Stop 08/13/17 at 04:44; Status DC Sodium Chloride 100 ml @ 10 mls/hr ONCE ONCE IV ; Start 08/12/17 at 22:45; Stop 08/13/17 at 08:44; Status DC Sodium Chloride 100 ml @ 10 mls/hr ONCE ONCE IV Last administered on at 08:14; Start 08/13/17 at 07:00; Stop 08/13/17 at 16:59; Status DC Sodium Chloride 100 ml @ 10 mls/hr ONCE ONCE IV ; Start 08/13/17 at 11:45; Stop 08/13/17 at 13:02; Status DC Sodium Chloride 250 ml @ 10 mls/hr ONCE ONCE IV Last administered on at 19:45; Start 08/13/17 at 19:45; Stop 08/14/17 at 20:44 A/P Problem List: (1) Chest pain ICD Code: R07.9 - Chest pain, unspecified (2) Elevated troponin ICD Code: R74.8 - Abnormal levels of other serum enzymes (3) Hyponatremia ICD Code: E87.1 - Hypo-osmolality and hyponatremia Assessment and Plan This is a 82-year-old male presented with fatigue and shortness of breathing Acute hyponatremia, euvolemic -Patient currently on 3% saline. 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 Will repeat sodium and if sodium continues to improve will DC hypertonic solution. -Clinically drastic improvement. Continue to monitor and trend sodium. Shortness of breathing, resolved. -BMP was within normal limits. Chest x-ray negative. Clinically his lungs are clear he is not on oxygen. ECHO ejection fraction 55%. Reviewed.. His hemoglobin has also been stable at 11. -Symptoms seem to resolved. He does not have any symptoms or clinical signs of pneumonia. Continues do well off of Augmentin. He completed his course of pneumonia treatment already. Hypokalemia -Replenish. Atypical chest pain, CAD - Appreciate cardiology recommendations. Stress test is negative but shows a fixed defect. Rhabdomyolysis -CK is improving. Hypertension - Continue amlodipine. DVT prophylaxis -SCDs Problem Qualifiers (1) Chest pain: Qualified Codes: R07.9 - Chest pain, unspecified Rachael Grider MD Aug 14, 2017 15:45
[2017-08-14] MEDS: TAMSULOSIN HCL 0.4 MG CAP PO SCH (21:00)
[2017-08-15] VITALS: BP 134/64; PULSE 90; RESP 20; TEMP 98.2; O2SAT 97
[2017-08-15 03:46] VITALS: PULSE 63
[2017-08-15 04:00] VITALS: BP 116/57; PULSE 80; RESP 16; TEMP 98.3; O2SAT 96
[2017-08-15 08:00] VITALS: BP 138/64; PULSE 82; RESP 20; TEMP 97.9; O2SAT 96
[2017-08-15] MEDS: ASPIRIN EC 81 MG TABEC PO SCH (08:08)
[2017-08-15] MEDS: amLODIPine BESYLATE 5 MG TAB PO SCH (08:08)
[2017-08-15] MEDS: SODIUM CHLORIDE 1 GRAM TAB PO SCH ×2 (08:08→12:20)
[2017-08-15 09:59] LABS: BICARBONATE 25.6 MEQ/L (21.0-32.0); CALCIUM 8.4 MG/DL (8.5-10.1); CREATININE 0.99 MG/DL (0.60-1.30)
[2017-08-15] MEDS ORDERED: METO25TA3 PO (10:51)
[2017-08-15] MEDS ORDERED: ECASA81 PO (10:51)
[2017-08-15] MEDS ORDERED: SODI1TAB PO (10:52)
--- NOTE | 2017-08-15 10:54 | HHI.DS ---
Discharge Summary Admission Date Aug 08, 2017 at 11:28 Admitting Diagnosis NONSTEMI,HYPONATREMIA (1) Chest pain ICD Code: R07.9 - Chest pain, unspecified Diagnosis: Principal (2) Elevated troponin ICD Code: R74.8 - Abnormal levels of other serum enzymes Diagnosis: Principal (3) Hyponatremia ICD Code: E87.1 - Hypo-osmolality and hyponatremia Diagnosis: Principal Procedures None Brief History - From Admission patient is a 82 y/o male with history of CAD- s/p stent placement three years ago, hypertension and colon cancer- who presented to ER with generalized weakness and chest pain. the , at the bedside, helped with the translation. she said that he's been coughing for the past few days and had on and off fever. he was seen in ER few days ago and was discharged home with the diagnosis of bronchitis. she says that the had some Augmentin at home and he's been taking it for the past three days. he started to have some diarrhea two days ago. today he denies any abdominal pain, nausea or emesis. he says that this morning he had some chest pain. pain was described as mid-sternal pressure with no radiation and no association with nausea, emesis or diaphoresis- however the pain subsided after he was started on Nitro-patch; he was pain-free at the time of my evaluation.the says that he was so weak and dizzy this morning that he was about to fall which made her concerned and decided to bring him to the hospital. CBC/BMP: 08/14/17 0757 08/15/17 0808 Significant Findings Laboratory Tests Test 08/12/17 16:20 08/12/17 20:30 08/13/17 00:43 08/13/17 06:05 Sodium Level 120 MEQ/L (136-145) 121 MEQ/L (136-145) 123 MEQ/L (136-145) 123 MEQ/L (136-145) Total Creatine Kinase 1156 U/L (39-308) Creatine Kinase MB 12.1 NG/ML (0.5-3.6) Red Blood Count 3.34 MIL/MM3 (4.50-5.90) Hemoglobin 10.8 GM/DL (13.0-17.0) Hematocrit 29.2 % (39.0-51.0) Mean Corpuscular Hemoglobin Concent 36.9 % (32.0-36.0) Mean Platelet Volume 6.9 FL (7.0-11.0) Chloride Level 91 MEQ/L (98-107) Estimat Glomerular Filtration Rate 83 ML/MIN (>89) Test 08/13/17 10:12 08/13/17 14:57 08/13/17 16:00 08/14/17 07:57 Sodium Level 124 MEQ/L (136-145) 125 MEQ/L (136-145) 129 MEQ/L (136-145) Aspartate Amino Transf (AST/SGOT) 79 U/L (15-37) Thyroid Stimulating Hormone 3rd Gen 5.580 uIU/ML (0.358-3.740) Red Blood Count 3.44 MIL/MM3 (4.50-5.90) Hemoglobin 11.1 GM/DL (13.0-17.0) Hematocrit 30.6 % (39.0-51.0) Mean Corpuscular Hemoglobin Concent 36.2 % (32.0-36.0) Mean Platelet Volume 6.9 FL (7.0-11.0) Chloride Level 95 MEQ/L (98-107) Estimat Glomerular Filtration Rate 70 ML/MIN (>89) Test 08/14/17 14:57 08/15/17 08:08 Sodium Level 130 MEQ/L (136-145) 132 MEQ/L (136-145) Calcium Level 8.4 MG/DL (8.5-10.1) Chloride Level 96 MEQ/L (98-107) Estimat Glomerular Filtration Rate 72 ML/MIN (>89) PE at Discharge GENERAL: in NAD CARDIOVASCULAR: Regular rate and rhythm without murmurs, gallops, or rubs. RESPIRATORY: Breath sounds equal bilaterally. No accessory muscle use. GASTROINTESTINAL: Abdomen soft, non-tender, nondistended. MUSCULOSKELETAL: No cyanosis, or edema. Pt Condition on Discharge: Good Discharge Disposition: Discharge Home Discharge Instructions DIET: Follow Instructions for: Heart Healthy Diet Activities you can perform: Regular-No Restrictions Rachael Grider MD Aug 15, 2017 10:54
--- NOTE | 2017-08-15 10:54 | HHI.DCPOC ---
Discharge Care Plan Diagnosis: (1) CAD (coronary artery disease) (2) Hyponatremia (3) Elevated troponin Goals to Promote Your Health * To prevent worsening of your condition and complications * To maintain your health at the optimal level Directions to Meet Your Goals Take your medications as prescribed Follow your dietary instruction Follow activity as directed Keep your appointments as scheduled Take your immunizations and boosters as scheduled If your symptoms worsen call your PCP, if no PCP go to Urgent Care Center or Emergency Room Smoking is Dangerous to Your Health. Avoid second hand smoke Call the 24-hour hour crisis hotline for domestic abuse at Rachael Grider MD Aug 15, 2017 10:54
[2017-08-15 12:00] VITALS: BP 119/58; PULSE 67; PULSE 79; RESP 20; TEMP 97.8; O2SAT 96
== END 2017-08-15 18:49 | disposition home or self-care (01) | DRG 640 ==
LOC: NEPC 08:25 → NEDA 11:28 → HCIS 16:12 → N04A 08-10 18:30
PROVIDERS: ADMIT Family Medicine; ATTEND Family Medicine
DX: E87.1 Hypo-osmolality and hyponatremia (principal); J18.9 Pneumonia, unspecified organism; E86.0 Dehydration; M62.82 Rhabdomyolysis; D69.6 Thrombocytopenia, unspecified; R07.89 Other chest pain; I25.2 Old myocardial infarction; I25.10 Atherosclerotic heart disease of native coronary artery without angina pectoris; Z95.5 Presence of coronary angioplasty implant and graft; I10 Essential (primary) hypertension; E87.6 Hypokalemia; D72.819 Decreased white blood cell count, unspecified; E66.9 Obesity, unspecified; Z68.28 Body mass index [BMI] 28.0-28.9, adult; Z79.82 Long term (current) use of aspirin; Z85.038 Personal history of other malignant neoplasm of large intestine
CPT/HCPCS: 71045; 78452; 80048; 80053; 80076; 82436; 82533; 82550; 82552; 83690; 83735; 83880; 83930; 83935; 84100; 84295; 84300; 84443; 84484; 85007; 85025; 85027; 85610; 85730; 93005; 93017; 93306; 94150; 94640; 94664; 99291; A9502; J2785; J3475; J7030